=== PATIENT | female | born 1965 | race Caucasian/White ===

== ENCOUNTER 2020-06-09 08:20 | Outpatient (REF) | payer BC, SELFPAY ==
[2020-06-09 11:37] LABS: Estimated Average Glucose 148 mg/dL; Hemoglobin A1c % 6.8 %
[2020-06-09 12:06] LABS: Alanine Aminotransferase 67 U/L (0-31); Albumin Level 4.8 g/dL (3.5-5.0); Alkaline Phosphatase 49 U/L (39-117); Anion Gap 11 (12-20); Aspartate Amino Transferase 41 U/L (5-31); Bilirubin Total 0.6 mg/dL (0.0-1.0); Blood Urea Nitrogen 10 mg/dL (9-16); Calcium 8.5 mg/dL (8.4-10.2); Carbon Dioxide 29 mmol/L (22-29); Chloride 102 mmol/L (96-108); Cholesterol 129 mg/dL; Estimated Glomerular Filt Rate > 60; Glucose Fasting 157 mg/dL (60-99); HDL Cholesterol 71 mg/dL; LDL Cholesterol Calculated 49 mg/dl; Potassium 4.7 mmol/l (3.3-5.1); Sodium 137 mmol/L (135-145); Total Protein 6.9 g/dL (6.5-8.0); Triglycerides 48 mg/dL
[2020-06-09 12:32] LABS: Creatinine Urine 41.21 mg/dL; Microalbumin Urine < 5.0 mg/L
== END 2020-06-09 08:21 | disposition home or self-care (01) ==
LOC: HO.MANLR 08:20
PROVIDERS: PCP Internal Medicine; Visit Provider Internal Medicine
DX: E11.9 Type 2 diabetes mellitus without complications (principal)
CPT/HCPCS: 80053; 80061; 82043; 83036

== ENCOUNTER 2020-09-07 08:38 | Outpatient (REF) | payer BC, SELFPAY ==
[2020-09-07 11:30] LABS: Estimated Average Glucose 143 mg/dL; Hemoglobin A1c % 6.6 %
== END 2020-09-07 08:39 | disposition home or self-care (01) ==
LOC: HO.MANLR 08:38
PROVIDERS: PCP Internal Medicine; Visit Provider Internal Medicine
DX: E11.9 Type 2 diabetes mellitus without complications (principal)
CPT/HCPCS: 36415; 83036

== ENCOUNTER 2020-12-29 11:33 | Outpatient (REF) | payer BC, SELFPAY ==
[2020-12-29 12:52] LABS: Hemoglobin 12.6 g/dl (12.0-16.0); Mean Corpuscular HGB Conc 34.1 g/dl (31.0-35.0); Mean Corpuscular Hemoglobin 30.2 pg (27.0-33.0); Mean Corpuscular Volume 88.7 fL (80-98); Mean Platelet Volume 10.1 fL (9.4-12.3); Platelet Count 223 X10*3/uL (160-400); Red Blood Count 4.17 X10*6/uL (4.20-5.50); Red Cell Distribution Width 12.2 % (11.0-16.0); White Blood Count 4.7 X10*3/uL (4.8-10.8)
[2020-12-29 13:30] LABS: Alanine Aminotransferase 50 U/L (0-31); Albumin Level 4.7 g/dL (3.5-5.0); Alkaline Phosphatase 52 U/L (39-117); Anion Gap 13 (12-20); Aspartate Amino Transferase 31 U/L (5-31); Bilirubin Total 0.9 mg/dL (0.0-1.0); Blood Urea Nitrogen 9 mg/dL (9-16); Calcium 9.9 mg/dL (8.4-10.2); Carbon Dioxide 26 mmol/L (22-29); Chloride 106 mmol/L (96-108); Cholesterol 111 mg/dL; Creatinine Urine 41.42 mg/dL; Estimated Average Glucose 151 mg/dL; Estimated Glomerular Filt Rate > 60; Glucose Random 153 mg/dL (60-115); HDL Cholesterol 61 mg/dL; Hemoglobin A1c % 6.9 %; LDL Cholesterol Calculated 40 mg/dl; Microalbum/Creatinine Ratio Ur 16.9 ug/mg cr; Potassium 5.1 mmol/L (3.3-5.1); Sodium 140 mmol/L (135-145); Total Protein 6.9 g/dL (6.5-8.0); Triglycerides 54 mg/dL
== END 2020-12-29 11:34 | disposition home or self-care (01) ==
LOC: HO.MANLDS 11:33
PROVIDERS: PCP Internal Medicine; Visit Provider Internal Medicine
DX: E11.9 Type 2 diabetes mellitus without complications (principal); E78.00 Pure hypercholesterolemia, unspecified; F07.81 Postconcussional syndrome
CPT/HCPCS: 36415; 80053; 80061; 82043; 83036; 85027

== ENCOUNTER 2021-05-25 08:33 | Outpatient (REF) | payer BC, SELFPAY ==
[2021-05-25 11:11] LABS: Estimated Average Glucose 203 mg/dL; Hemoglobin A1c % 8.7 %
[2021-05-25 11:44] LABS: Alanine Aminotransferase 100 U/L (0-31); Albumin Level 4.4 g/dL (3.5-5.0); Alkaline Phosphatase 58 U/L (39-117); Anion Gap 12 (12-20); Aspartate Amino Transferase 112 U/L (5-31); Bilirubin Total 0.9 mg/dL (0.0-1.0); Blood Urea Nitrogen 8 mg/dL (9-16); Calcium 9.4 mg/dL (8.4-10.2); Carbon Dioxide 27 mmol/L (22-29); Chloride 99 mmol/L (96-108); Cholesterol 104 mg/dL; Estimated Glomerular Filt Rate > 60; Glucose Fasting 272 mg/dL (60-99); HDL Cholesterol 48 mg/dL; LDL Cholesterol Calculated 46 mg/dl; Potassium 4.4 mmol/L (3.3-5.1); Sodium 134 mmol/L (135-145); Total Protein 6.6 g/dL (6.5-8.0); Triglycerides 54 mg/dL
[2021-05-25 11:44] LABS: Creatinine Urine 75.25 mg/dL; Microalbum/Creatinine Ratio Ur 14.6 ug/mg cr
== END 2021-05-25 08:34 | disposition home or self-care (01) ==
LOC: HO.MANLDS 08:33
PROVIDERS: PCP Internal Medicine; Visit Provider Internal Medicine
DX: E11.9 Type 2 diabetes mellitus without complications (principal); E78.00 Pure hypercholesterolemia, unspecified
CPT/HCPCS: 36415; 80053; 80061; 82043; 83036

== ENCOUNTER 2021-08-26 08:30 | Outpatient (REF) | payer BC, SELFPAY ==
[2021-08-26 11:25] LABS: Alanine Aminotransferase 60 U/L (0-31); Albumin Level 4.6 g/dL (3.5-5.0); Alkaline Phosphatase 56 U/L (39-117); Anion Gap 11 (12-20); Aspartate Amino Transferase 31 U/L (5-31); Bilirubin Total 0.8 mg/dL (0.0-1.0); Blood Urea Nitrogen 7 mg/dL (9-16); Calcium 9.5 mg/dL (8.4-10.2); Carbon Dioxide 28 mmol/L (22-29); Chloride 102 mmol/L (96-108); Cholesterol 133 mg/dL; Estimated Glomerular Filt Rate > 60; Glucose Fasting 137 mg/dL (60-99); HDL Cholesterol 64 mg/dL; LDL Cholesterol Calculated 63 mg/dl; Potassium 4.7 mmol/L (3.3-5.1); Sodium 136 mmol/L (135-145); Total Protein 6.9 g/dL (6.5-8.0); Triglycerides 32 mg/dL
[2021-08-26 11:28] LABS: Estimated Average Glucose 143 mg/dL; Hemoglobin A1c % 6.6 %
[2021-08-26 11:28] LABS: Creatinine Urine 100.39 mg/dL; Microalbum/Creatinine Ratio Ur 5.9 ug/mg cr
== END 2021-08-26 08:31 | disposition home or self-care (01) ==
LOC: HO.MANLDS 08:30
PROVIDERS: PCP Internal Medicine; Visit Provider Internal Medicine
DX: E11.9 Type 2 diabetes mellitus without complications (principal)
CPT/HCPCS: 36415; 80053; 80061; 82043; 83036

== ENCOUNTER 2021-11-23 11:16 | Outpatient (REF) | payer BC, SELFPAY ==
[2021-11-23 12:58] LABS: Alanine Aminotransferase 55 U/L (0-31); Albumin Level 4.4 g/dL (3.5-5.0); Alkaline Phosphatase 54 U/L (39-117); Anion Gap 12 (12-20); Aspartate Amino Transferase 44 U/L (5-31); Bilirubin Total 0.4 mg/dL (0.0-1.0); Blood Urea Nitrogen 10 mg/dL (9-16); Calcium 9.6 mg/dL (8.4-10.2); Carbon Dioxide 27 mmol/L (22-29); Chloride 102 mmol/L (96-108); Cholesterol 148 mg/dL; Estimated Glomerular Filt Rate > 60; Glucose Random 221 mg/dL (60-115); HDL Cholesterol 67 mg/dL; LDL Cholesterol Calculated 61 mg/dl; Potassium 4.5 mmol/L (3.3-5.1); Sodium 136 mmol/L (135-145); Total Protein 6.7 g/dL (6.5-8.0); Triglycerides 100 mg/dL
[2021-11-23 13:00] LABS: Estimated Average Glucose 128 mg/dL; Hemoglobin A1c % 6.1 %
[2021-11-23 14:55] LABS: Creatinine Urine 112.57 mg/dL; Microalbum/Creatinine Ratio Ur 14.2 ug/mg cr
== END 2021-11-23 11:17 | disposition home or self-care (01) ==
LOC: HO.MANLDS 11:16
PROVIDERS: Visit Provider Internal Medicine
DX: E11.9 Type 2 diabetes mellitus without complications (principal)
CPT/HCPCS: 36415; 80053; 80061; 82043; 83036

== ENCOUNTER 2022-03-20 07:55 | Outpatient (REF) | payer BC, SELFPAY ==
[2022-03-20 11:21] LABS: Estimated Average Glucose 140 mg/dL; Hemoglobin A1c % 6.5 %
== END 2022-03-20 07:56 | disposition home or self-care (01) ==
LOC: HO.MANLDS 07:55
PROVIDERS: Visit Provider Internal Medicine
DX: E11.9 Type 2 diabetes mellitus without complications (principal)
CPT/HCPCS: 36415; 83036

== ENCOUNTER 2022-08-23 07:39 | Outpatient (REF) | payer BC, SELFPAY ==
[2022-08-23 12:05] LABS: Estimated Average Glucose 206 mg/dL; Hemoglobin A1c % 8.8 %
[2022-08-23 12:33] LABS: Alanine Aminotransferase 118 U/L (0-31); Albumin Level 4.5 g/dL (3.5-5.0); Alkaline Phosphatase 70 U/L (39-117); Anion Gap 14 (12-20); Aspartate Amino Transferase 91 U/L (5-31); Bilirubin Total 1.2 mg/dL (0.0-1.0); Blood Urea Nitrogen 11 mg/dL (9-16); Calcium 9.4 mg/dL (8.4-10.2); Carbon Dioxide 27 mmol/L (22-29); Chloride 103 mmol/L (96-108); Cholesterol 143 mg/dL; Estimated Glomerular Filt Rate > 60; Glucose Fasting 222 mg/dL (60-99); HDL Cholesterol 53 mg/dL; LDL Cholesterol Calculated 79 mg/dl; Potassium 4.8 mmol/L (3.3-5.1); Sodium 139 mmol/L (135-145); Total Protein 6.8 g/dL (6.5-8.0); Triglycerides 59 mg/dL
[2022-08-23 12:53] LABS: Creatinine Urine 179.58 mg/dL
[2022-08-23 15:05] LABS: Microalbum/Creatinine Ratio Ur 12.8 ug/mg cr
== END 2022-08-23 07:40 | disposition home or self-care (01) ==
LOC: HO.MANLDS 07:39
PROVIDERS: Visit Provider Internal Medicine
DX: E11.9 Type 2 diabetes mellitus without complications (principal)
CPT/HCPCS: 36415; 80053; 80061; 82043; 83036

== ENCOUNTER 2022-10-31 08:16 | Outpatient (REF) | payer BC, SELFPAY ==
[2022-10-31 12:16] LABS: Estimated Average Glucose 171 mg/dL; Hemoglobin A1c % 7.6 %
[2022-10-31 12:53] LABS: Creatinine Urine 110.83 mg/dL
[2022-10-31 13:08] LABS: Alanine Aminotransferase 83 U/L (0-31); Albumin Level 4.4 g/dL (3.5-5.0); Alkaline Phosphatase 64 U/L (39-117); Anion Gap 13 (12-20); Aspartate Amino Transferase 54 U/L (5-31); Blood Urea Nitrogen 8 mg/dL (9-16); Calcium 9.1 mg/dL (8.4-10.2); Carbon Dioxide 27 mmol/L (22-29); Chloride 103 mmol/L (96-108); Cholesterol 133 mg/dL; Estimated Glomerular Filt Rate > 60; Glucose Random 148 mg/dL (60-115); HDL Cholesterol 61 mg/dL; LDL Cholesterol Calculated 64 mg/dl; Sodium 138 mmol/L (135-145); Total Protein 6.5 g/dL (6.5-8.0); Triglycerides 40 mg/dL
== END 2022-10-31 08:17 | disposition home or self-care (01) ==
LOC: HO.MANLDS 08:16
PROVIDERS: Visit Provider Internal Medicine
DX: E11.9 Type 2 diabetes mellitus without complications (principal)
CPT/HCPCS: 36415; 80053; 80061; 82043; 83036

== ENCOUNTER 2023-01-19 08:09 | Outpatient (REF) | payer BC, SELFPAY ==
[2023-01-19 14:05] LABS: Estimated Average Glucose 131 mg/dL; Hemoglobin A1c % 6.2 %
[2023-01-19 14:06] LABS: Alanine Aminotransferase 76 U/L (0-31); Albumin Level 4.6 g/dL (3.5-5.0); Alkaline Phosphatase 60 U/L (39-117); Anion Gap 19 (12-20); Aspartate Amino Transferase 42 U/L (5-31); Bilirubin Total 0.5 mg/dL (0.0-1.0); Blood Urea Nitrogen 10 mg/dL (9-16); Calcium 9.5 mg/dL (8.4-10.2); Carbon Dioxide 21 mmol/L (22-29); Chloride 103 mmol/L (96-108); Cholesterol 145 mg/dL; Estimated Glomerular Filt Rate > 60; Glucose Random 145 mg/dL (60-115); HDL Cholesterol 59 mg/dL; LDL Cholesterol Calculated 74 mg/dl; Potassium 4.5 mmol/L (3.3-5.1); Sodium 138 mmol/L (135-145); Total Protein 7.2 g/dL (6.5-8.0); Triglycerides 62 mg/dL
== END 2023-01-19 08:10 | disposition home or self-care (01) ==
LOC: HO.MANLDS 08:09
PROVIDERS: Visit Provider Internal Medicine
DX: E11.9 Type 2 diabetes mellitus without complications (principal)
CPT/HCPCS: 36415; 80053; 80061; 83036

== ENCOUNTER 2023-05-03 07:49 | Outpatient (REF) | payer BC, SELFPAY ==
[2023-05-03 11:32] LABS: Estimated Average Glucose 143 mg/dL; Hemoglobin A1c % 6.6 % (<6.0)
[2023-05-03 11:43] LABS: Alanine Aminotransferase 75 U/L (0-31); Albumin Level 4.5 g/dL (3.5-5.0); Alkaline Phosphatase 59 U/L (39-117); Anion Gap 11 (12-20); Aspartate Amino Transferase 48 U/L (5-31); Bilirubin Total 0.7 mg/dL (0.0-1.0); Blood Urea Nitrogen 7 mg/dL (9-16); Calcium 9.5 mg/dL (8.4-10.2); Carbon Dioxide 29 mmol/L (22-29); Chloride 106 mmol/L (96-108); Cholesterol 141 mg/dL (<200); Estimated Glomerular Filt Rate > 60; Glucose Random 136 mg/dL (60-115); HDL Cholesterol 67 mg/dL (>40); LDL Cholesterol Calculated 69 mg/dL (<100); Potassium 4.6 mmol/L (3.3-5.1); Sodium 141 mmol/L (135-145); Total Protein 6.9 g/dL (6.5-8.0); Triglycerides 28 mg/dL (<150)
== END 2023-05-03 07:50 | disposition home or self-care (01) ==
LOC: HO.WFDLDS 07:49
PROVIDERS: Visit Provider Internal Medicine
DX: E11.9 Type 2 diabetes mellitus without complications (principal)
CPT/HCPCS: 36415; 80053; 80061; 83036

== ENCOUNTER 2023-08-21 07:40 | Outpatient (REF) | payer BC, SELFPAY ==
[2023-08-21 14:00] LABS: Alanine Aminotransferase 82 U/L (0-31); Albumin Level 4.6 g/dL (3.5-5.0); Alkaline Phosphatase 63 U/L (39-117); Anion Gap 12 (12-20); Aspartate Amino Transferase 61 U/L (5-31); Bilirubin Total 0.9 mg/dL (0.0-1.0); Blood Urea Nitrogen 9 mg/dL (9-16); Calcium 9.8 mg/dL (8.4-10.2); Carbon Dioxide 30 mmol/L (22-29); Chloride 102 mmol/L (96-108); Cholesterol 148 mg/dL (<200); Estimated Glomerular Filt Rate > 60; Glucose Random 167 mg/dL (60-115); HDL Cholesterol 73 mg/dL (>40); LDL Cholesterol Calculated 65 mg/dL (<100); Potassium 4.6 mmol/L (3.3-5.1); Sodium 139 mmol/L (135-145); Total Protein 6.9 g/dL (6.5-8.0); Triglycerides 51 mg/dL (<150)
[2023-08-21 16:24] LABS: Estimated Average Glucose 143 mg/dL; Hemoglobin A1c % 6.6 % (<6.0)
== END 2023-08-21 07:41 | disposition home or self-care (01) ==
LOC: HO.MANLDS 07:40
PROVIDERS: Visit Provider Internal Medicine
DX: E11.9 Type 2 diabetes mellitus without complications (principal)
CPT/HCPCS: 36415; 80053; 80061; 83036

== ENCOUNTER 2023-12-05 08:01 | Outpatient (REF) | payer BC, SELFPAY ==
[2023-12-05 13:50] LABS: Estimated Average Glucose 157 mg/dL; Hemoglobin A1c % 7.1 % (<6.0)
== END 2023-12-05 08:02 | disposition home or self-care (01) ==
LOC: HO.MANLDS 08:01
PROVIDERS: Visit Provider Internal Medicine
DX: E11.9 Type 2 diabetes mellitus without complications (principal)
CPT/HCPCS: 36415; 83036

== ENCOUNTER 2024-03-21 09:20 | Outpatient (REF) | payer BC, SELFPAY ==
[2024-03-21 11:40] LABS: Estimated Average Glucose 146 mg/dL; Hemoglobin A1c % 6.7 % (<6.0); Total Hemoglobin (HGBA1C) 3495.0687 umol/L
[2024-03-21 12:17] LABS: Alanine Aminotransferase 113 U/L (0-31); Albumin Level 4.5 g/dL (3.5-5.0); Alkaline Phosphatase 60 U/L (39-117); Anion Gap 12 (12-20); Aspartate Amino Transferase 78 U/L (5-31); Bilirubin Total 0.7 mg/dL (0.0-1.0); Blood Urea Nitrogen 7 mg/dL (9-16); Calcium 9.7 mg/dL (8.4-10.2); Carbon Dioxide 27 mmol/L (22-29); Chloride 104 mmol/L (96-108); Cholesterol 156 mg/dL (<200); Estimated Glomerular Filt Rate > 60; Glucose Random 159 mg/dL (60-115); HDL Cholesterol 82 mg/dL (>40); LDL Cholesterol Calculated 68 mg/dL (<100); Potassium 4.1 mmol/L (3.3-5.1); Sodium 139 mmol/L (135-145); Total Protein 6.9 g/dL (6.5-8.0); Triglycerides 34 mg/dL (<150)
== END 2024-03-21 09:21 | disposition home or self-care (01) ==
LOC: HO.WFDLDS 09:20
PROVIDERS: Visit Provider Internal Medicine
DX: E11.9 Type 2 diabetes mellitus without complications (principal)
CPT/HCPCS: 36415; 80053; 80061; 83036

== ENCOUNTER 2024-07-18 08:31 | Outpatient (REF) | payer BC, SELFPAY ==
--- OUTSIDE RECORDS SUMMARY | 2024-07-18 08:51 | XMS_ITS | Data Portability ---
Author Organization [facility] (formerly [facility])[3][facility], Home Service Address [address] [place] [address] Assessment Encounter Date Assessment Date Assessment LastModified by Organization Details LastModified Time 01/24/2023 01/24/2023 [id number] [place] [id number] (RADIO REPAIR TEACHER) [facility] MODERATE MUST MEET 2 OUT OF 3 ELEMENTS: PROBLEMS, DATA OR RISK ELEMENT 1: PROBLEMS ADDRESSED 1 OR MORE CHRONIC ILLNESS WITH EXACERBATION OR 2 OR MORE STABLE CHRONIC ILLNESSES OR 1 UNDIAGNOSED NEW PROBLEM OR 1 ACUTE ILLNESS W/SYMPTOMS OR 1 ACUTE COMPLICATED INJURY ELEMENT 2: DATA MUST MEET 1 OF 3 CATEGORIES CATEGORY 1: REVIEW OF PRIOR EXTERNAL NOTES, REVIEW OF RESULTS, ORDERING OF EACH TEST, ASSESSMENT REQUIRING INDEPENDENT HISTORIAN OR CATEGORY 2: INDEPENDENT INTERPRETATION OF TESTS BY ANOTHER PHYSICIAN OR SPECIALIST OR CATEGORY 3: DISCUSSION OF MGT OR TEST INTERPRETATION W/EXTERNAL PHYSICIAN OR SPECIALIST ELEMENT 3: RISK RISK OF COMPLICATIONS AND/OR MORBIDITY OR MORTALITY OF PATIENT MANAGEMENT PROVIDER MUST THOROUGHLY DOCUMENT EACH ELEMENT THAT IS COVERED Not available 01/24/2023 09:23:23 05/08/2023 05/08/2023 [id number] [place] [id number] (RADIO REPAIR TEACHER) [facility] MODERATE MUST MEET 2 OUT OF 3 ELEMENTS: PROBLEMS, DATA OR RISK ELEMENT 1: PROBLEMS ADDRESSED 1 OR MORE CHRONIC ILLNESS WITH EXACERBATION OR 2 OR MORE STABLE CHRONIC ILLNESSES OR 1 UNDIAGNOSED NEW PROBLEM OR 1 ACUTE ILLNESS W/SYMPTOMS OR 1 ACUTE COMPLICATED INJURY ELEMENT 2: DATA MUST MEET 1 OF 3 CATEGORIES CATEGORY 1: REVIEW OF PRIOR EXTERNAL NOTES, REVIEW OF RESULTS, ORDERING OF EACH TEST, ASSESSMENT REQUIRING INDEPENDENT HISTORIAN OR CATEGORY 2: INDEPENDENT INTERPRETATION OF TESTS BY ANOTHER PHYSICIAN OR SPECIALIST OR CATEGORY 3: DISCUSSION OF MGT OR TEST INTERPRETATION W/EXTERNAL PHYSICIAN OR SPECIALIST ELEMENT 3: RISK RISK OF COMPLICATIONS AND/OR MORBIDITY OR MORTALITY OF PATIENT MANAGEMENT PROVIDER MUST THOROUGHLY DOCUMENT EACH ELEMENT THAT IS COVERED Not available 05/08/2023 14:54:46 08/27/2023 08/27/2023 [id number] [place] [id number] (RADIO REPAIR TEACHER) [facility] MODERATE MUST MEET 2 OUT OF 3 ELEMENTS: PROBLEMS, DATA OR RISK ELEMENT 1: PROBLEMS ADDRESSED 1 OR MORE CHRONIC ILLNESS WITH EXACERBATION OR 2 OR MORE STABLE CHRONIC ILLNESSES OR 1 UNDIAGNOSED NEW PROBLEM OR 1 ACUTE ILLNESS W/SYMPTOMS OR 1 ACUTE COMPLICATED INJURY ELEMENT 2: DATA MUST MEET 1 OF 3 CATEGORIES CATEGORY 1: REVIEW OF PRIOR EXTERNAL NOTES, REVIEW OF RESULTS, ORDERING OF EACH TEST, ASSESSMENT REQUIRING INDEPENDENT HISTORIAN OR CATEGORY 2: INDEPENDENT INTERPRETATION OF TESTS BY ANOTHER PHYSICIAN OR SPECIALIST OR CATEGORY 3: DISCUSSION OF MGT OR TEST INTERPRETATION W/EXTERNAL PHYSICIAN OR SPECIALIST ELEMENT 3: RISK RISK OF COMPLICATIONS AND/OR MORBIDITY OR MORTALITY OF PATIENT MANAGEMENT PROVIDER MUST THOROUGHLY DOCUMENT EACH ELEMENT THAT IS COVERED Not available 08/27/2023 11:19:06 12/17/2023 12/17/2023 [id number] [place] [id number] (RADIO REPAIR TEACHER) [facility] MODERATE MUST MEET 2 OUT OF 3 ELEMENTS: PROBLEMS, DATA OR RISK ELEMENT 1: PROBLEMS ADDRESSED 1 OR MORE CHRONIC ILLNESS WITH EXACERBATION OR 2 OR MORE STABLE CHRONIC ILLNESSES OR 1 UNDIAGNOSED NEW PROBLEM OR 1 ACUTE ILLNESS W/SYMPTOMS OR 1 ACUTE COMPLICATED INJURY ELEMENT 2: DATA MUST MEET 1 OF 3 CATEGORIES CATEGORY 1: REVIEW OF PRIOR EXTERNAL NOTES, REVIEW OF RESULTS, ORDERING OF EACH TEST, ASSESSMENT REQUIRING INDEPENDENT HISTORIAN OR CATEGORY 2: INDEPENDENT INTERPRETATION OF TESTS BY ANOTHER PHYSICIAN OR SPECIALIST OR CATEGORY 3: DISCUSSION OF MGT OR TEST INTERPRETATION W/EXTERNAL PHYSICIAN OR SPECIALIST ELEMENT 3: RISK RISK OF COMPLICATIONS AND/OR MORBIDITY OR MORTALITY OF PATIENT MANAGEMENT PROVIDER MUST THOROUGHLY DOCUMENT EACH ELEMENT THAT IS COVERED Not available 12/17/2023 10:17:58 Plan of Treatment Reminders Order Date Submit Date Provider Last Modified By Organization Details Last Modified Time Details Appointments FOLLOW UP 15 2024 10:15A M DR HENDRICKSON Not available Not available Not available Lab None recorded. Referral None recorded. Procedures None recorded. Surgeries None recorded. Imaging US, echocardi ogram, transthor acic, complete, w/ color flow 2023 024 hrubner Not available 03/26/2024 09:22:07 Medication Orders azithromy karol 250 mg tablet 2022 023 [id number], [address], [place], [phone], 08/27/2023 10:46:58 Trulicity 1.5 mg/0.5 mL subcutane ous pen injector 2023 024 VESTA [id number], [address], [place], [phone], 12/17/2023 10:21:48 Patient TargetsNo targets recorded. Patient Instructions Encounter Date Encounter Id Patient Instructions Last Modified By Organization Details Last Modified Time 03/25/2024 [id number] deciding about using medicines to quit smoking Not available 03/25/2024 13:54:47 Quitting Tobacco : Care Instructions Not available 03/25/2024 13:54:47 aortic valve regurgitation: care instructions Not available 03/25/2024 13:54:46 heart valve disease: care instructions Not available 03/25/2024 13:54:47 mitral valve regurgitation: care instructions Not available 03/25/2024 13:54:46 Reason for Referral None Reported. Results Created Date Observation Date Name Description Value Unit Range Abnormal Flag Note LastModifiedBy Organization Detail LastModifiedTime 03/22/2003/12/2023 MAMMO , scree stiven, digit al, bilat eral No observ ation record ed. [facility] [address] [place] [address], [id number], 03/22/2023 22:33:45 04/10/20 24 04/10/2024 US, echoc ardio gram, trans thora cic, compl ete, w/ color flow No observ ation record ed. [address], [address], 04/10/2024 20:52:21 Result Notes None recorded. Problems Name Problem SNOMED Code Status Onset Date Resolution Date Notes Provider Name and Address Organization Details Recorded Time Hypercho lesterol emia 66264114 Active 2019 Not Available [facility] 1 10:52:05 COVID-19 000064938 Active 2020March 2021 [facility] 10:19:08 Concussi on injury of brain 526353055 Active 2021 Cheo Hendrickson, DO [address] [place] [address], [phone], [facility] 2 11:44:23 Tobacco dependen ce syndrome 09892866 Active 2021 Cheo Hendrickson, DO [address] [place] [address], [phone], [facility] 2 11:44:23 Aortic valve regurgit ation 23982629 Active 2022 Cheo Hendrickson, DO [address] [place] [address], [phone], [facility] 3 14:45:15 Mitral valve regurgit ation 36990571 Active 2022 Cheo Hendrickson, DO [address] [place] [address], [phone], [facility] 3 14:45:28 Liver enzymes level above referenc e range 773857745 Active 2022 Cheo Hendrickson, DO [address] [place] [address], [phone], [facility] 3 14:46:58 Viral upper respirat ory tract infectio n 525164148 Active 2022 Cheo Hendrickson, DO [address] [place] [address], [phone], [facility] 3 12:33:05 Atypical pneumoni a 036744388 Active 2022 Cheo Hendrickson, DO [address] [place] [address], [address], [facility] 3 14:54:16 Obstruct lazarus sleep apnea syndrome 59786908 Active 2017 Not Available [facility] 1 10:52:05 Prediabe virgen 288758096 Completed 201711/12/2017 Cheo Hendrickson, DO [address] [facility], [place], [address], [facility] 8 11:14:51 Hyperten sive disorder 62772642 Active 2017 Not Available [facility] 1 10:52:05 Migraine 58357471 Active 2017 Not Available [facility] 1 10:52:05 History of reductio n of breast 698761601 Active 2017 b/l Not Available [facility] 1 10:52:05 History of obesity 175579538 Active 2017 Not Available [facility] 1 10:52:05 Diabetes mellitus 87737656 Active 2017 Not Available [facility] 1 10:52:05 Problem Notes None recorded. Procedures Surgical History Date Name Laterality Status Provider Name and Address Organization Details Recorded Time 7 Colonoscopy completed Chuyita Dumont [facility] 06/10/2018 16:31:33 Imaging Results Imaging Date Name Status LastModified by Organiz ation Details LastModified Time 03/12/2023 MAMMO, screening, digital, bilateral completed [address] [facility] [address] [place] [address], [id number], 03/22/2023 22:33:45 04/10/2024 US, echocardiogram , transthoracic, complete, w/ color flow completed [address], [address], 04/10/2024 20:52:21 Procedure Notes None recorded. Medical Equipment None Reported. Allergies No known drug allergies Medications Name Sig Start Date Stop Date Status Note LastModified by Organization Details LastModified Time amoxicillin 500 mg capsule 08/28 completed Not Available Not Available Not Available metformin 500 mg tablet Take 1 tablet every day by oral route in the morning for 30 days. active Not Available Not Available No t Available atorvastati n 10 mg tablet Take 1 tablet every day by oral route. 12/14 completed Not Available Not Available Not Available azithromyci n 250 mg tablet TAKE 2 TABLETS (500 MG) BY ORAL ROUTE ONCE DAILY FOR 1 DAY THEN 1 TABLET (250 MG) BY ORAL ROUTE ONCE DAILY FOR 4 DAYS 08/26 completed Not Available Not Available Not Available hydrocodone 5 mg-acetamin ophen 325 mg tablet 08/28 completed Not Available Not Available Not Available aspirin 81 mg tablet,khadra yed release active Not Available Not Available Not Available mupirocin 2 % topical ointment APPLY SMALL AMOUNT TOPICALLY TO THE AFFECTED AREA THREE TIMES DAILY 05/30 completed Not Available Not Available Not Available metformin ER 500 mg tablet,exte nded release 24 hr TAKE 2 TABLETS BY MOUTH EVERY DAY 12/16 completed Not Available Not Available Not Available Pneumovax-2 3 25 mcg/0.5 mL injection syringe ADM 0.5ML IM UTD 06/16 completed Not Available Not Available Not Available rosuvastati n 5 mg tablet TAKE 1 TABLET BY MOUTH EVERY DAY 03/22 completed Not Available Not Available Not Available chlorhexidi ne gluconate 0.12 % mouthwash 08/28 completed Not Available Not Available Not Available Januvia 100 mg tablet TAKE 1 TABLET BY MOUTH DAILY active Not Available Not Available No t Available OneTouch Verio test strips Take 1 strip twice a day by miscell. route for 90 days. active Not Available Not Available No t Available OneTouch Delica Lancets 30 gauge Take 1 each twice a day by miscell. route for 50 days. active Not Available Not Available No t Available Trulicity 1.5 mg/0.5 mL subcutaneou s pen injector Inject 0.5 mL every week by subcutane ous route for 30 days. active Not Available Not Available No t Available Trulicity 0.75 mg/0.5 mL subcutaneou s pen injector ADMINISTE R 0.75 MG UNDER THE SKIN EVERY WEEK 12/16 completed Not Available Not Available Not Available Shingrix (PF) 50 mcg/0.5 mL intramuscul ar suspension, kit ADM 0.5ML IM UTD 06/16 completed Not Available Not Available Not Available Fluarix Quad (PF) 60 mcg (15 mcg x 4)/0.5 mL IM syringe 08/31 completed Not Available Not Available Not Available Fluzone Quad (PF) 60 mcg (15 mcg x 4)/0.5 mL IM syringe ADM 0.5ML IM UTD 06/16 completed Not Available Not Available Not Available Vitals Date Recorded Body height Body mass index (BMI) Body weight Heart rate Oxygen saturation Oxygen saturation in Arterial blood by Pulse oximetry Systolic blood pressure Diastolic blood pressure Provider Name and Address Organization Details Last Updated DateTime 3 171.45 cm 27.3 kg/m2 61589.8 5 g 100 /min 99 % 99 % 138 mm[Hg] 80 mm[Hg] Claritza Robles [facility] 3 09:09:57 Date Recorded Body height Body mass index (BMI) Body weight Heart rate Oxygen saturation Oxygen saturation in Arterial blood by Pulse oximetry Systolic blood pressure Diastolic blood pressure Provider Name and Address Organization Details Last Updated DateTime 3 171.45 cm 26.4 kg/m2 20448.5 8 g 77 /min 97 % 97 % 145 mm[Hg] 82 mm[Hg] Yolanda Ware [facility] 3 13:58:56 Date Recorded Body height Body mass index (BMI) Body weight Heart rate Oxygen saturation Oxygen saturation in Arterial blood by Pulse oximetry Systolic blood pressure Diastolic blood pressure Provider Name and Address Organization Details Last Updated DateTime 4 171.45 cm 27.2 kg/m2 53274.6 2 g 61 /min 99 % 99 % 162 mm[Hg] 98 mm[Hg] Cheo Hendrickson, DO [address] [place], [address], [facility] 4 10:46:13 Date Recorded Body height Body mass index (BMI) Body weight Heart rate Oxygen saturation Oxygen saturation in Arterial blood by Pulse oximetry Systolic blood pressure Diastolic blood pressure Provider Name and Address Organization Details Last Updated DateTime 4 171.45 cm 26.1 kg/m2 38827.8 3 g 66 /min 99 % 99 % 166 mm[Hg] 90 mm[Hg] Leandra Hill [facility] 4 10:02:11 Date Recorded Body height Body mass index (BMI) Body weight Heart rate Oxygen saturation Oxygen saturation in Arterial blood by Pulse oximetry Systolic blood pressure Diastolic blood pressure Provider Name and Address Organization Details Last Updated DateTime 4 171.45 cm 26.1 kg/m2 49219.1 1 g 77 /min 100 % 100 % 138 mm[Hg] 80 mm[Hg] Claritza Robles [facility] 4 13:41:12 Social History Question Answer Notes LastModified by Organizat ion Details LastModified Time Tobacco Smoking Status Former Smoker Claritza gonzales [facility] 01/24/2023 09:08:35 What Was The Date Of Your Most Recent Tobacco Screening? 03/25/2024 [email or web address] Information not available 03/25/2024 How Much Tobacco Do You Smoke? No Information not available 01/24/2023 Do You Or Have You Ever Used Any Other Forms Of Tobacco Or Nicotine? No [email or web address] Information not available 01/24/2023 Sex: Unknown Functional Status None recorded. Mental Status None recorded. Family History Nothing Reported. Medical History Condition Response Coronary Artery Disease N Other N Gout N Blood Diseases N Kidney Stones N Breast Cancer N Blood Transfusion N Lung Disease N Depression N COPD N Defects or Inherited Disease N Anxiety Disorder N Muscle, Joint, or Bone Problems N Obesity N Vision or Eye Problems N Arthritis N Infertility N Polyps N Mental Disorder N Cancer N Stroke N Varicosities N Endometriosis N Bladder or Kidney Problems N High Cholesterol N Liver Disease N Fibromyalgia N Headaches N Kidney Disease N Allergies/Hayfever N Heart Problems N Hospitalizations N Thyroid Problems N GI Problems N Eating Disorder N Skin Problems N Anemia N MRSA exposure N Constipation N Mental Illness N Diabetes N Ovarian Cancer N Seizures/Epilepsy N Tuberculosis N Congestive Heart Failure (CHF) N Eczema N Abuse/Domestic Violence N Diverticulitis N Asthma N Reflux/GERD N Hepatitis N Heart Disease N Pulmonary Embolism N Hypertension N Chicken Pox N Autism Spectrum Disorder (ASD) N Osteoporosis N Gynecological HistoryNo gynecological history recorded. Obstetrics History GPAL:G 0 P 0 0 0 0 Immunizations Vaccine Type Date Status Note Provider Nam e and Address Organization Details Recorded Time Influenza, split virus, quadrivalent, preservative 1 completed Yolanda Gencarelle [facility] 01/24/2023 08:53:02 COVID-19, mRNA, LNP-S, PF, 100 mcg/0.5mL dose or 50 mcg/0.25mL dose 1 completed Yolanda Gencarelle null, [facility] 01/24/2023 08:53:02 influenza, unspecified formulation 2 completed Yolanda Gencarelle null, [facility] 01/24/2023 08:53:02 influenza, unspecified formulation 3 completed Blayne Jacksonda null, [facility] 08/24/2023 16:11:48 Influenza, split virus, quadrivalent, preservative 9 completed Yolanda Gencarelle null, [facility] 01/24/2023 08:53:02 Influenza, split virus, quadrivalent, preservative 0 completed Yolanda Gencarelle null, [facility] 01/24/2023 08:53:02 pneumococcal polysaccharide PPV23 0 completed Yolanda Gencarelle null, [facility] 01/24/2023 08:53:02 zoster recombinant 0 completed Yolanda Gencarelle null, [facility] 01/24/2023 08:53:02 zoster recombinant 1 completed Yolanda Gencarelle null, [facility] 01/24/2023 08:53:02 Tdap 1 completed Betty Figueroa null, [facility] 07/13/2020 10:57:02 COVID-19, mRNA, LNP-S, PF, 100 mcg/0.5mL dose or 50 mcg/0.25mL dose 1 completed Yolanda Gencarelle null, [facility] 01/24/2023 08:53:02 Influenza, split virus, quadrivalent, preservative 8 completed Yolanda Gencarelle null, [facility] 01/24/2023 08:53:02 COVID-19, mRNA, LNP-S, PF, 100 mcg/0.5mL dose or 50 mcg/0.25mL dose 1 completed Yolanda gonzales [facility] 01/24/2023 08:53:02 Past Encounters Encounter ID Performer Location Encounter Start Date Encounter Closed Date Diagnosis/Indication Diagnosis SNOMED-CT Code Diagnosis ICD10 Code Diagnosis Note [id number] Cheo Hendrickson [facility] [address] [facility],[place] [address] 11/12/2017 10:38:30 11/12/2017 13:14:04 Diabetes mellitus 49121378 E11.9 doing great and has been exercising every day 6.8 on no meds has eye exam next week Hypertensive disorder 38 654776 I10 no meds bp excellent cont to exercise [id number] Cheo Hendrickson DO [facility] [address],[place] [address] 02/27/2018 10:28:27 02/27/2018 11:35:54 Diabetes mellitus 18885234 E11.9 doing great and has been exercising every day 6.0 on no meds awesome Hypertensive disorder 38 216892 I10 no meds bp excellent cont to exercise [id number] Cheo Hendrickson DO [facility] [address], [address] [facility] [address] 06/10/2018 11:21:20 06/10/2018 12:22:00 Diabetes mellitus 68219926 E11.9 doing great and has been exercising every day 6.0 on no meds awesome had sx from lipitor so will try rosuvastat as last ditch attempt Hypertensive disorder 38 670467 I10 no meds bp excellent cont to exercise Screening for malignant neoplasm of colon 540227472 Z12.11 Screening for malignant neoplasm of breast 415559504 Z12.31 [id number] Irene Hutchison NP, S [facility] [address] [facility] [address], [place] [address] 07/10/2018 15:01:34 07/10/2018 15:26:13 Cough 60386703 R05 Fever 225626466 R50.9 Diabetes mellitus 245023 09 E11.9 pt aware to complete A1C [id number] Cheo Hendrickson DO [facility] [address] [facility] [address],[place] [address] 09/01/2019 11:52:07 09/01/2019 12:16:48 Hypertensive disorder 24919798 I10 no meds bp excellent cont to exercise Diabetes mellitus 762321 E11.9 did not keep a good diet and drinking etoh relates has not been good will start metformin 500 daily for now had sx from lipitor so will try rosuvastat in as last ditch attempt needs to find out which meter is covered Hypercholesterolemia 136 81297 E78.00 [id number] Cheo Hendrickson [facility] [address] [facility] [address],[place] [address] 12/15/2019 10:19:14 12/15/2019 11:22:01 Hypertensive disorder 49440952 I10 no meds bp excellent cont to exercise Diabetes mellitus 308108 E11.9 did not keep a good diet and drinking etoh relates has not been good will start metformin 500 daily for now had sx from lipitor so will try rosuvastat in as last ditch attempt needs to find out which meter is covered Hypercholesterolemia 136 03564 E78.00 doing great with rosuvastat [id number] Cheo Hendrickson DO [facility] [address] [facility] [address],[place] [address] 03/15/2020 10:43:24 03/15/2020 11:59:16 Hypertensive disorder 80781252 I10 no meds bp excellent cont to exercise Diabetes mellitus 107381 E11.9 did not keep a good diet and drinking etoh relates has not been good will start januvia daily for now but the problem with this is the cost 120$$$$$ needs to start checking sugars needs to find out which meter is covered Hypercholesterolemia 136 21217 E78.00 doing great with rosuvastat Liver enzy mes level above reference range 644596716 R74.8 will rechk in may and will have her cut down on partying etc [id number] Cheo Hendrickson [facility] [address] [facility] [address] [address] [place] [address] 06/16/2020 09:49:40 06/16/2020 11:09:40 Hypertensive disorder 56578417 I10 no meds bp excellent cont to exercise Diabetes mellitus 635629 E11.9 nahiduvia is well and is working great well tolerated relates has been good with diet and glucose readings doing good with diet will rechk a1c 3 mo Obstructiv e sleep apnea syndrome 92967885 G47.33 stable right now [id number] Cheo Hendrickson DO [facility] [address] [facility],[place] [address] 09/13/2020 10:20:18 09/13/2020 11:03:58 Hypertensive disorder 50803918 I10 no meds bp excellent cont to exercise sw will need to rechk after her echo Diabetes mellitus 573685 E11.9 nahiduvia is well and is working great well tolerated relates has been good with diet and glucose readings doing good with diet will rechk a1c 3 mo Hypercholesterolemia 136 55778 E78.00 doing great with rosuvastat Atypical chest pain 1025 95718 R07.89 [id number] KHURRAM DIANA [facility] [address] [facility],[place] [address] 11/23/2020 13:57:35 11/23/2020 15:37:25 Concussion injury of brain 185758696 S06.0X0S with loss of consciousn ess discussed with patient echo report would like to discuss with dr. hendrickson Syncope 308385951 R55 with LOC and head injury Aortic cha ve regurgitation 37685391 I35.1 worsened since last echo and new aortic root dilation Mitral cha ve regurgitation 63700190 I34.0 stable compared [id number] Cheo Hendrickson DO [facility] [address] [facility],[place] [address] 12/01/2020 12:13:22 12/01/2020 12:42:18 Hypertensive disorder 42792298 I10 no meds bp excellent cont to exercise sw will need to rechk after her echo Diabetes mellitus 603269 09 E11.9 nahiduvia is well and is working great well tolerated relates has been good with diet and glucose readings doing good with diet will rechk a1c 3 mo Postconcus suraj syndrome 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 will have her take it easy over the next couple weeks [id number] Cheo Hendrickson [facility] [address] [facility],[place] [address] 12/31/2020 11:13:06 12/31/2020 12:14:00 Diabetes mellitus 74354669 E11.9 landon is well and is working great well tolerated a1c is 6.9relates has been good with diet and glucose readings doing good with diet will rechk a1c 3 mo Hypertensive disorder 38 327233 I10 no meds bp excellent cont to exercise sw will need to rechk after her echo Obstructiv e sleep apnea syndrome 31650580 G47.33 stable right now Benign par oxysmal positional vertigo 735190875 H81.13 will need zyrtec D for the serous otitis seen on exam both ears Acute folliculitis 64237 7007 L73.9 [id number] Cheo Hendrickson [facility] [address] [facility],[place] [address] 05/30/2021 10:08:21 05/30/2021 12:25:33 Hypertensive disorder 28683063 I10 no meds bp excellent cont to exercise sw will need to rechk after her echo Diabetes mellitus [id number] 09 E11.9 a1c is up to 8.7 she has now shown signs of worsening neuropathy with rastafarian of tingling in feet at nightalso microalb has sl increased although still normalwe will try the trulicity rx again and see if the insurance will cover nowi am very worried about her and conveyed thatwill rechk a1c 3 mo Liver enzy mes level above reference range 919340146 R74.8 we will hold the rosuvastat in and rechk in 1 month [id number] Cheo Hendrickson [facility] [address] [facility],[place] [address] 08/29/2021 10:43:14 08/29/2021 15:08:43 Diabetes mellitus 69697849 E11.9 a1c is down to 6.6 from 8.7 doing great with trulicitye ating ok needs to increase activitywe will decrease the metformin to one tablet per day Hypertensive disorder 38 639658 I10 no meds bp excellent cont to exercise sw will need to rechk after her echo [id number] Cheo Hendrickson, [facility] [address] [facility] [address],[place] [address] 11/30/2021 10:50:07 11/30/2021 15:41:58 Hypertensive disorder 11986736 I10 no meds bp excellent cont to exercise sw will need to rechk after her echo Diabetes mellitus 728837 09 E11.9 a1c is down to 6.6 from 8.7 doing great with trulicitye ating ok needs to increase activitywe will decrease the metformin to one tablet per day Concussion injury of brain 004560969 S06.0X0S quiet and negative signs etc Tobacco de pendence syndrome 43398645 F17.200 discussed and quit in past already [id number] Cheo Hendrickson [facility] [address] [facility],[address] [place] [address] [place] [facility] [place] [address] 03/22/2022 10:19:54 03/22/2022 11:35:03 Hypertensive disorder 25793635 I10 no meds bp excellent cont to exercise sw will need to rechk after her echo Diabetes mellitus 879210 09 E11.9 a1c is down to 6.5 and was 6.6 from 8.7 doing great with trulicitye ating ok needs to increase activitywe will decrease the metformin to one tablet per day Hypercholesterolemia 136 42861 E78.00 doing great with rosuvastat [id number] Cheo Hendrickson [facility] [address] [facility] [address],[place] [address] 08/28/2022 13:55:54 08/28/2022 15:07:32 Diabetes mellitus 98844512 a1c isup to 8.8 and prior was down to 6.5 and was 6.6 from 8.7will increase trulicity and go back to 2 metformin dailyeatin g poorly needs to increase activity Hypertensive disorder 38 412455 I10 no meds bp excellent cont to exercise sw will need to rechk after her echo Obstructiv e sleep apnea syndrome 61571383 G47.33 stable right now Concussion injury of brain 871180518 S06.0X0S quiet and negative signs etc Screening mammography 24 784202 Z12.31 Liver enzy mes level above reference range 997974221 R74.8 we will still hold the rosuvastat in due to elevated levels andamount of etoh 32239 Cheo Hendrickson, [facility] [address] [facility],[address] [place] it[address] Mayer [facility] [place] [address] 11/01/2022 08:23:04 11/01/2022 14:24:08 Diabetes mellitus 01740870 E11.9 a1c is now down to 7.6 and she is doing much better she is walking daily and eating better no partying and quit tobacco we will stick to this plan and rechk in jan Liver enzy mes level above reference range 199676178 R74.8 we will still hold the rosuvastat in due to elevated levels andamount of etoh but levels are getting better Tobacco de pendence syndrome 05573820 F17.200 discussed and quit and is actually doing well without the past several mo Viral uppe r respiratory tract infection [id number] J06.9 covid neg she will cont to treat conserv and will have her call if ay sudden change 'whereupon we would prob treat for pneumoniti s with medrol and zpak [id number] Cheo Hendrickson, [facility] [address] [facility],Liza Mayer [facility] [place] [address] 01/24/2023 08:52:01 01/24/2023 09:45:50 Diabetes mellitus 17687810 E11.9 a1c is now down to 6.2 was 7.6 and she is doing much better she is walking daily and eating better no partying and quit tobacco we will stick to this plan and rechk in aprhas been getting some random nausea episodes that are quick and disappear this is c/w trulicity Hypercholesterolemia 136 11295 E78.00 off all statins due to lft will discuss the injectable s with dr payton once we see Mitral cha ve regurgitation 05440906 I34.0 follows with cardiology now Hypertensive disorder 38 469926 I10 no meds bp excellent cont to exercise sw will need to rechk after her echo Liver enzy mes level above reference range 775688981 R74.8 we will still hold the rosuvastat in due to elevated levels andamount of etoh but levels are getting better [id number] Cheo Hendrickson DO [facility] Internal Medicine [address] [facility] [address],[place] [address] 05/08/2023 13:51:20 05/08/2023 15:11:51 Hypercholesterolemia 53478954 E78.00 off all statins due to lft will discuss the injectable s with dr payton once we see Diabetes mellitus 573177 09 E11.9 a1c is now up tp 6.6 was down to 6.2 was 7.6 and she is doing much better she is walking daily and eating better no partying and quit tobacco we will stick to this plan and rechk in novhas been getting some random nausea episodes that are quick and disappear this is c/w trulicity Hypertensive disorder 38 282116 I10 no meds bp excellent cont to exercise sw will need to rechk after her echo Atypical pneumonia 40167 6009 J18.9 [id number] Cheo Hendrickson [facility] [address] [facility] [address],[place] [address] 08/27/2023 10:41:08 08/27/2023 11:34:36 Hypercholesterolemia 23341042 E78.00 off all statins due to lft will discuss the injectable s with dr payton once we see Hypertensive disorder 38 636409 I10 bp is up relates was in a great hurry sw will need to rechk after her echo Liver enzy mes level above reference range 318470209 R74.8 we will still hold the rosuvastat in due to elevated levels andamount of etoh but levels are getting better Diabetes mellitus 739297 09 E11.9 a1c is still at 6.6 was down to 6.2 was 7.6 and she is doing much better she is walking daily and eating better no partying and quit tobacco we will stick to this plan and rechk in novhas been getting some random nausea episodes that are quick and disappear this is c/w trulicity [id number] Cheo Hendrickson DO [facility] Internal Medicine [address] [facility] [address],[place] [address] 12/17/2023 09:54:11 12/17/2023 11:28:46 Depression screening 223572017 Z13.31 SCREENING NEGATIVE Hypertensive disorder 38 832641 I10 bp is up relates was in a great hurry is doing bettter since losing wgt Diabetes mellitus 309919 09 E11.9 a1c is still at 7.1 was 7.9 and she is doing much better she is walking daily and eating better no partying and quit tobacco we will stick to this plan and re[facility]k in [facility] been getting some random nausea episodes that are quick and disappear this is c/w trulicity Hypercholesterolemia 136 28757 E78.00 off all statins due to lft will discuss the injectable s with dr payton once we see [id number] Cheo Hendrickson, [facility] Medicine [address] [facility] [address],[place] [address] 03/25/2024 13:33:13 03/25/2024 14:39:45 Diabetes mellitus 57815228 E11.9 aa1c is 6.7 Hypertensive disorder 38 291984 I10 bp is up relates was in a great hurry is doing bettter since losing wgt Mitral cha ve regurgitation 83285880 I34.0 follows with cardiology now Tobacco de pendence syndrome 04660339 F17.200 discussed and quit and is actually doing well without the past several mo Aortic cha ve regurgitation 71982719 I35.1 Health Concerns Section Related Observation LastModified by Organization Detai ls LastModified Time None Recorded Concern Status LastModified by Organization Details LastModified Time None Recorded Advance Directives Directive None Recorded Payers Encounter Date Sequence Insurance Name Policy Number Policy Garcia Covered Member ID Garcia Member ID Guarantor Name 01/24/2023 1 [place] [employer] [facility] [id number] Katrin Cutler [id number] Katrin Cutler 05/08/2023 1 [place] [employer] [facility] [id number] Katrin Dangeloek [id number] Katrin Dangeloek 08/27/2023 1 [place] [employer] [facility] [id number] Katrin Cutler [id number] Katrin Cutler 12/17/2023 1 [place] [employer] [facility] [id number] Katrin Cutler [id number] Katrin Cutler 03/25/2024 1 [place] [employer] [facility] [id number] Katrin Dangelovenessa [id number] Katrin Cutler Notes Date Note Type Note Provider Name and Address Organization Details Recorded Time 3 text/htm l here for rechk and has been doing well with her diet and is walkinghas cut back frequency of etoh use Cheo Hendrickson DO [address] [place], [address], [facility] 01/24/2023 09:29:54 3 text/htm l Care Management - DiabetesReported bypatient.Self Care:seeing eye doctor yearly for dilated eye exam; checking feet regularly; normal range of home blood sugars (in the low 100s); no side effects from medications Associated Symptoms:symptoms are usually well controlled; no fatigue; no dizziness; no excessive sweating; no headaches; no confusion; no increased thirst; no increased appetite; no increased urination; no blurred vision; no numbness of feet; no calluses on feetCare Management - HypertensionReported bypatient.Self Care:not under emotional stress Severity:symptoms are improving; does not interfere with daily activities Associated Symptoms:no dizziness; no lightheadedness; no chest pain; no shortness of breath; no palpitations; no edema; no calf muscle cramps; no blurred vision; no confusion; no headaches; no fatigue her for rechkrelates has had a persistant cough and irritation with maybe some nasal congestionreviewed lab in detail Cheo Hendrickson DO [address] [place], [address], [facility] 05/08/2023 14:57:24 4 text/htm l here for rechk and is doing ok and relatesfeeling good overallwalking morebp is up but has been running around to get here 'has not gotten her lab relates that she is leary of doing cholest shot from dr payton a1c is 6.6 LDL 90 HDL 63 Cheo Hendrickson DO [address] [place], [address], [facility] 08/27/2023 11:19:59 4 text/htm l Care Management - DiabetesReported bypatient.Self Care:seeing eye doctor yearly for dilated eye exam; checking feet regularly; normal range of home blood sugars (in the low 100s); no side effects from medications Associated Symptoms:symptoms are usually well controlled; no fatigue; no dizziness; no excessive sweating; no headaches; no confusion; no increased thirst; no increased appetite; no increased urination; no blurred vision; no numbness of feet; no calluses on feetCare Management - HypertensionReported bypatient.Self Care:not under emotional stress Severity:symptoms are improving; does not interfere with daily activities Associated Symptoms:no dizziness; no lightheadedness; no chest pain; no shortness of breath; no palpitations; no edema; no calf muscle cramps; no blurred vision; no confusion; no headaches; no fatigue here for rechk and is doing ok overrall and relates that she has lost more wgtis stressed at home with partner departing but remains an active with kids and workhas lost a little weightstill occ parties but has cut back a great deal Cheo Hendrickson, DO [address] [place], [address], [facility] 12/18/2023 00:02:28 4 text/htm l Care Management - DiabetesReported bypatient.Self Care:seeing eye doctor yearly for dilated eye exam; checking feet regularly; normal range of home blood sugars (in the low 100s); no side effects from medications Associated Symptoms:symptoms are usually well controlled; no fatigue; no dizziness; no excessive sweating; no headaches; no confusion; no increased thirst; no increased appetite; no increased urination; no blurred vision; no numbness of feet; no calluses on feetCare Management - HypertensionReported bypatient.Self Care:not under emotional stress Severity:symptoms are improving; does not interfere with daily activities Associated Symptoms:no dizziness; no lightheadedness; no chest pain; no shortness of breath; no palpitations; no edema; no calf muscle cramps; no blurred vision; no confusion; no headaches; no fatigue here for rechk and is doing okno cp no sobstill has etohno palpitationshas lost a little wgtdue to see tata in may Cheo Hendrickson, DO [address] [facility], [place], [address], [facility] 03/25/2024 13:55:18 OBGyn Episode No OBEpisode recorded.
[2024-07-18 13:08] LABS: Estimated Average Glucose 146 mg/dL; Hemoglobin A1C 172.8996 umol/L; Hemoglobin A1c % 6.7 % (<6.0); Total Hemoglobin (HGBA1C) 3497.8686 umol/L
[2024-07-18 13:47] LABS: Alanine Aminotransferase 100 U/L (0-31); Albumin Level 4.2 g/dL (3.5-5.0); Anion Gap 9 (12-20); Aspartate Amino Transferase 66 U/L (5-31); Bilirubin Total 0.6 mg/dL (0.0-1.0); Blood Urea Nitrogen 8 mg/dL (9-16); Calcium 9.2 mg/dL (8.4-10.2); Carbon Dioxide 27 mmol/L (22-29); Chloride 106 mmol/L (96-108); Cholesterol 143 mg/dL (<200); Estimated Glomerular Filt Rate > 60; Glucose Fasting 159 mg/dL (60-99); HDL Cholesterol 73 mg/dL (>40); LDL Cholesterol Calculated 63 mg/dL (<100); Potassium 4.2 mmol/L (3.3-5.1); Sodium 138 mmol/L (135-145); Total Protein 6.7 g/dL (6.5-8.0); Triglycerides 35 mg/dL (<150)
[2024-07-18 14:18] LABS: Alkaline Phosphatase 63 U/L (39-117)
== END 2024-07-18 08:32 | disposition home or self-care (01) ==
LOC: HO.WFDLDS 08:31
PROVIDERS: Visit Provider Internal Medicine
DX: E11.9 Type 2 diabetes mellitus without complications (principal)
CPT/HCPCS: 36415; 80053; 80061; 83036

== ENCOUNTER 2024-11-05 11:20 | Outpatient (REF) | payer BC, SELFPAY ==
--- OUTSIDE RECORDS SUMMARY | 2024-11-05 12:20 | XMS_ITS | Data Portability ---
Author Organization [facility] Service Address [address] [place] [address] Assessment Encounter Date Assessment Date Assessment LastModified by Organization Details LastModified Time 05/08/2023 05/08/2023 [id number] [place] [id number] (ELECTRIC MOTOR TESTER) [facility] MODERATE MUST MEET 2 OUT OF 3 [...] COVERED Not available 05/08/2023 14:54:46 08/27/2023 08/27/2023 [id number] [place] [id number] (ELECTRIC MOTOR TESTER) [facility] MODERATE MUST MEET 2 OUT OF 3 [...] COVERED Not available 08/27/2023 11:19:06 12/17/2023 12/17/2023 [id number] [place] [id number] (ELECTRIC MOTOR TESTER) [facility] MODERATE MUST MEET 2 OUT OF [...] THAT IS COVERED Not available 12/17/2023 10:17:58 07/21/2024 07/21/2024 [id number] [place] [id number] (ELECTRIC MOTOR TESTER) [facility] MODERATE MUST MEET 2 OUT OF [...] EACH ELEMENT THAT IS COVERED Not available 07/21/2024 10:55:26 Plan of Treatment Reminders Order Date Submit Date Provider Last Modified By Organization Details Last Modified Time Details Appointments FOLLOW UP 15 2024 10:15A M DR HENDRICKSON Not available Not available Not available Lab HbA1c (hemoglob in A1c), blood 2024 025 [facility], [address] [place] [address], [place], [address], 07/21/2024 10:57:13 Referral None recorded. Procedures None recorded. Surgeries None recorded. Imaging US, echocardi ogram, transthor acic, complete, w/ color flow 2023 024 hrubner Not available 03/26/2024 09:22:07 Medication Orders Trulicity 1.5 mg/0.5 mL subcutane ous pen injector 2023 024 VESTA Not available 12/17/2023 10:21:48 azithromy karol 250 mg tablet 2022 023 Not available 08/27/2023 10:46:58 Patient TargetsNo targets recorded. Patient Instructions Encounter Date Encounter Id Patient Instructions Last Modified By Organization Details Last Modified Time 03/25/2024 [id number] deciding about using medicines to quit smoking [...] Abnormal Flag Note LastModifiedBy Organization Detail LastModifiedTime 04/10/2004/10/2024 US, echoc ardio gram, trans thora cic, compl ete, w/ color flow No observ ation record ed. [address], [address], 04/10/2024 20:52:21 Result Notes None recorded. Problems Name Problem SNOMED Code Status Onset Date Resolution Date Notes Provider Name and Address Organization Details Recorded Time Hypercho lesterol emia 14696529 Active 2019 Not Available [facility] 10:52:05 COVID-19 125084568 Active 2020March 2021 Chuyita gonzales [place] - [facility] 10:19:08 Concussi on injury of brain 693362687 Active 2021 Cheo Hendrickson, DO [address] [place] [address], [phone], [facility] 2 11:44:23 Tobacco dependen ce syndrome 23068598 Active 2021 Cheo Hendrickson, DO [address] [place] [address], [phone], [facility] 2 11:44:23 Aortic valve regurgit ation 92295791 Active 2022 Cheo Hendrickson, DO [address] [place] [address], [phone], [facility] 3 14:45:15 Mitral valve regurgit ation 69805438 Active 2022 Cheo Hendrickson, DO [address] [place] [address], [address], [facility] 3 14:45:28 Liver enzymes level above referenc e range 027966482 Active 2022 Cheo Hendrickson, DO [address] [place] [address], [address], [facility] 3 14:46:58 Viral upper respirat ory tract infectio n 367501506 Active 2022 Cheo Hendrickson, DO [address] [place] [address], [address], [facility] 3 12:33:05 Atypical pneumoni a 682632112 Active 2022 Cheo Hendrickson, DO [address] [place] [address], [address], [facility] 3 14:54:16 Obstruct lazarus sleep apnea syndrome 93229179 Active 2017 Not Available [facility] 1 10:52:05 Prediabe virgen 043033656 Completed 201711/12/2017 Cheo Hendrickson, DO [address] [place] [address], [address], [facility] 8 11:14:51 Hyperten sive disorder 38087972 Active 2017 Not Available [facility] 1 10:52:05 Migraine 87687121 Active 2017 Not Available [facility] 1 10:52:05 History of reductio n of breast 821789869 Active 2017 b/l Not Available [facility] 1 10:52:05 History of obesity 991729967 Active 2017 Not Available [facility] 1 10:52:05 Diabetes mellitus 09486636 Active 2017 Not Available [facility] 1 10:52:05 Problem Notes None recorded. Procedures Surgical History Date Name Laterality Status Provider Name and Address Organization Details Recorded Time 7 Colonoscopy completed Chuyita Dumont [facility] 06/10/2018 16:31:33 Imaging Results Imaging Date Name Status LastModified by Organiz ation Details LastModified Time 04/10/2024 US, echocardiog rebecca, transthorac ic, complete, w/ color flow completed [address], [address], 04/10/2024 20:52:21 Procedure Notes None recorded. Medical Equipment None Reported. Allergies No known drug allergies Medications Name Sig Start Date Stop Date Status Note LastModified by Organization Details LastModified Time amoxicillin 500 mg capsule 08/28 completed Not Available Not Available Not Available metformin 500 mg tablet TAKE 1 TABLET BY MOUTH EVERY DAY IN THE MORNING 2024 active Not Available Not Available Not Avai lable atorvastati n 10 mg tablet Take 1 [...] Available Not Available Januvia 100 mg tablet 1 po qd 2024 active Not Available Not Available Not Avai lable OneTouch Verio test strips Take 1 strip twice a day by miscell. route for 90 days. active Not Available Not Available No t Available OneTouch Delica Lancets 30 gauge Take 1 each twice a day by miscell. route for 50 days. active Not Available Not Available No t Available Trulicity 1.5 mg/0.5 mL subcutaneou s pen injector ADMINISTE R 1.5 MG UNDER THE SKIN EVERY WEEK 2024 active Not Available Not Available Not Avai lable Trulicity 0.75 mg/0.5 mL subcutaneou s pen [...] Updated DateTime 3 171.45 cm 26.4 kg/m2 77726.5 8 g 77 /min 97 % 97 % 145 mm[Hg] 82 mm[Hg] Yolanda Ware [facility] 3 13:58:56 Date Recorded Body height Body mass index (BMI) Body weight Heart rate Oxygen saturation Oxygen saturation in Arterial blood by Pulse oximetry Systolic blood pressure Diastolic blood pressure Provider Name and Address Organization Details Last Updated DateTime 4 171.45 cm 27.2 kg/m2 60336.6 2 g 61 /min 99 % 99 % 162 mm[Hg] 98 mm[Hg] Cheo Hendrickson, DO [address] [place], [address] [place] [address] Internal Medicine 4 10:46:13 Date Recorded Body height Body mass index (BMI) Body weight Heart rate Oxygen saturation Oxygen saturation in Arterial blood by Pulse oximetry Systolic blood pressure Diastolic blood pressure Provider Name and Address Organization Details Last Updated DateTime 4 171.45 cm 26.1 kg/m2 39429.8 3 g 66 /min 99 % 99 % 166 mm[Hg] 90 mm[Hg] Leandra Sergio [facility] 4 10:02:11 Date Recorded Body height Body mass index (BMI) Body weight Heart rate Oxygen saturation Oxygen saturation in Arterial blood by Pulse oximetry Systolic blood pressure Diastolic blood pressure Provider Name and Address Organization Details Last Updated DateTime 4 171.45 cm 26.1 kg/m2 64940.1 1 g 77 /min 100 % 100 % 138 mm[Hg] 80 mm[Hg] Claritza Robles [facility] 4 13:41:12 Date Recorded Body height Body mass index (BMI) Body weight Heart rate Oxygen saturation Oxygen saturation in Arterial blood by Pulse oximetry Systolic blood pressure Diastolic blood pressure Provider Name and Address Organization Details Last Updated DateTime 5 171.45 cm 25.2 kg/m2 12488.5 6 g 74 /min 100 % 100 % 148 mm[Hg] 80 mm[Hg] Claritza Robles [facility] Internal Medicine 5 10:34:15 Social History Question Answer Notes LastModified by Organizat ion Details LastModified Time Tobacco Smoking Status Former Smoker [facility] 01/24/2023 09:08:35 What Was The Date Of Your Most Recent Tobacco Screening? 03/25/2024 [email or web address] Information not available 03/25/2024 How Much Tobacco Do You Smoke? No [email or web address] Information not available 01/24/2023 Sex: Unknown Functional Status Question Answer Note LastModified by Organization D etails LastModified Time Do you or have you ever used any other forms of tobacco or nicotine? No [email or web address] Information not available 01/24/2023 Mental Status None recorded. Family History Nothing Reported. Medical History Condition Response Coronary Artery Disease N Gout N Other N Kidney Stones N Blood Diseases N Blood Transfusion N Breast Cancer N Lung Disease N Depression N COPD [...] virus, quadrivalent, preservative 1 completed Yolanda Gencarelle [facility] 01/24/2023 08:53:02 COVID-19, mRNA, LNP-S, PF, 100 mcg/0.5mL dose or 50 mcg/0.25mL dose 1 completed Yolanda Gencarelle [facility] 01/24/2023 08:53:02 influenza, unspecified formulation 2 completed Yolanda Gencarelle null, [facility] 01/24/2023 08:53:02 influenza, unspecified formulation 3 completed Blayne Hendrickson null, [facility] 08/24/2023 16:11:48 Influenza, split virus, quadrivalent, preservative 9 completed Yolanda Gencarelle null, [facility] 01/24/2023 08:53:02 Influenza, split virus, quadrivalent, preservative 0 completed Yolanda Gencarelle null, [facility] 01/24/2023 08:53:02 pneumococcal polysaccharide PPV23 0 completed Yolanda Gencarelle null, [facility] 01/24/2023 08:53:02 zoster recombinant 0 completed Yolanda Gencarelle null, [facility] 01/24/2023 08:53:02 zoster recombinant 1 completed Yolanda Gencarelle null, [facility] 01/24/2023 08:53:02 Tdap 1 completed Betty Figueroa null, [facility] 07/13/2020 10:57:02 COVID-19, mRNA, LNP-S, PF, 100 mcg/0.5mL dose or 50 mcg/0.25mL dose 1 completed Yolanda Gencarelle [facility], [facility] 01/24/2023 08:53:02 Influenza, split virus, quadrivalent, preservative 8 completed Yolanda Gencarelle null, [facility] 01/24/2023 08:53:02 COVID-19, mRNA, LNP-S, PF, 100 mcg/0.5mL dose or 50 mcg/0.25mL dose 1 completed Yolanda Gencarelle [facility], [facility] 01/24/2023 08:53:02 Past Encounters Encounter ID Performer Location Encounter Start Date Encounter Closed Date Diagnosis/Indication Diagnosis SNOMED-CT Code Diagnosis ICD10 Code Diagnosis Note [id number] Cheo Hendrickson [facility] [address] [facility],[place] [address] 11/12/2017 10:38:30 11/12/2017 13:14:04 Diabetes mellitus 84351674 E11.9 doing great and has been exercising every day 6.8 on no meds has eye exam next week Hypertensive disorder 38 419790 I10 no meds bp excellent cont to exercise [id number] Cheo Hendrickson [facility] [address] [facility] [address] 02/27/2018 10:28:27 02/27/2018 11:35:54 Diabetes mellitus 16082533 E11.9 doing great and has been exercising every day 6.0 on no meds awesome Hypertensive disorder 38 256443 I10 no meds bp excellent cont to exercise [id number] Cheo IsidroJuan Manueljenniffer [facility] [address] [facility], [place] [address] 06/10/2018 11:21:20 06/10/2018 12:22:00 Diabetes mellitus 24018465 E11.9 doing great and has been exercising every day 6.0 on no meds awesome had sx from lipitor so will try rosuvastat as last ditch attempt Hypertensive disorder 38 347780 I10 no meds bp excellent cont to exercise Screening for malignant neoplasm of colon 917353335 Z12.11 Screening for malignant neoplasm of breast 243427821 Z12.31 [id number] Cheo IsidroJuan Manueljenniffer [facility] [address] [facility], [place] [facility] [place] [address] 07/10/2018 15:01:34 07/10/2018 15:26:13 Cough 66370356 R05 Fever 946923669 R50.9 Diabetes mellitus 357608 09 E11.9 pt aware to complete A1C [id number] Cheo IsidroJuan Manueljenniffer [facility] [address] [facility] [place] [address] 09/01/2019 11:52:07 09/01/2019 12:16:48 Hypertensive disorder 71893619 I10 no meds bp excellent cont to exercise Diabetes mellitus 243983 09 E11.9 did not keep a good diet and drinking etoh relates has not been good will start metformin 500 daily for now had sx from lipitor so will try rosuvastat in as last ditch attempt needs to find out which meter is covered Hypercholesterolemia 136 47818 E78.00 [id number] Cheo Hendrickson [facility] [address] [facility] [address] [facility] [place] [place] [address] 12/15/2019 10:19:14 12/15/2019 11:22:01 Hypertensive disorder 26638467 I10 no meds bp excellent cont to exercise Diabetes mellitus 460186 09 E11.9 did not keep a good diet and drinking etoh relates has not been good will start metformin 500 daily for now had sx from lipitor so will try rosuvastat in as last ditch attempt needs to find out which meter is covered Hypercholesterolemia 136 10439 E78.00 doing great with rosuvastat [id number] Cheo Hendrickson [facility] [address] [facility],[place] [facility] [place] [place] [address] 03/15/2020 10:43:24 03/15/2020 11:59:16 Hypertensive disorder 29105808 I10 no meds bp excellent cont to exercise Diabetes mellitus 620812 09 E11.9 did not keep a good diet and drinking etoh relates has not been good will start januvia daily for now but the problem with this is the cost 120$$$$$ needs to start checking sugars needs to find out which meter is covered Hypercholesterolemia 136 91712 E78.00 doing great with rosuvastat Liver enzy mes level above reference range 281327334 R74.8 will rechk in may and will have her cut down on partying etc [id number] Cheo Hendrickson [facility] [address] [facility] [address] [address] 06/16/2020 09:49:40 06/16/2020 11:09:40 Hypertensive disorder 17167961 I10 no meds bp excellent cont to exercise Diabetes mellitus 295419 09 E11.9 januvia is well and is working great well tolerated relates has been good with diet and glucose readings doing good with diet will rechk a1c 3 mo Obstructiv e sleep apnea syndrome 10794020 G47.33 stable right now [id number] Cheo Hendrickson [facility] [address] [facility] [address], ite [facility] [place] [address] 09/13/2020 10:20:18 09/13/2020 11:03:58 Hypertensive disorder 80125623 I10 no meds bp excellent cont to exercise sw will need to rechk after her echo Diabetes mellitus 496774 09 E11.9 nahiduvia is well and is working great well tolerated relates has been good with diet and glucose readings doing good with diet will rechk a1c 3 mo Hypercholesterolemia 136 71315 E78.00 doing great with rosuvastat Atypical chest pain 1025 15024 R07.89 [id number] Cheo Hendrickson DO [facility] [address] [facility], [place] [address] 11/23/2020 13:57:35 11/23/2020 15:37:25 Concussion injury of brain 412260751 S06.0X0S with loss of consciousn ess discussed with patient echo report would like to discuss with dr. hendrickson Syncope 036274927 R55 with LOC and head injury Aortic cha ve regurgitation 47746893 I35.1 worsened since last echo and new aortic root dilation Mitral cha ve regurgitation 92640094 I34.0 stable compared [id number] Cheo Hendrickson DO [facility] [address] 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, [place] [address] 12/31/2020 11:13:06 12/31/2020 12:14:00 Diabetes mellitus 20235034 E11.9 januvia is well and is working great well tolerated a1c is 6.9relates has been good with diet and glucose readings doing good with diet will rechk a1c 3 mo Hypertensive disorder 38 710373 I10 no meds bp excellent cont to exercise sw will need to rechk after her echo Obstructiv e sleep apnea syndrome 60308957 G47.33 stable right now Benign par oxysmal positional vertigo 859039139 H81.13 will need zyrtec D for the serous otitis seen on exam both ears Acute folliculitis 07430 7007 L73.9 [id number] Cheo Hendrickson [facility] [address] [facility], [place] [facility] [place] [address] 05/30/2021 10:08:21 05/30/2021 12:25:33 Hypertensive disorder 16714542 I10 no meds bp excellent cont to exercise sw will need to rechk after her echo Diabetes mellitus 666407 09 E11.9 a1c is up to 8.7 she has now shown signs of worsening neuropathy with hoahaoism of tingling in feet at nightalso microalb has sl increased although still normalwe will try the trulicity rx again and see if the insurance will cover nowi am very worried about her and conveyed thatwill rechk a1c 3 mo Liver enzy mes level above reference range 136864765 R74.8 we will hold the rosuvastat in and rechk in 1 month [id number] Cheo Hendrickson [facility] [address] [facility], [place] [address] 08/29/2021 10:43:14 08/29/2021 15:08:43 Diabetes mellitus 00174724 E11.9 a1c is down to 6.6 from 8.7 doing great with trulicitye ating ok needs to increase activitywe will decrease the metformin to one tablet per day Hypertensive disorder 38 525720 I10 no meds bp excellent cont to exercise sw will need to rechk after her echo [id number] Cheo Hendrickson [facility] [address] [facility], [place] [address] 11/30/2021 10:50:07 11/30/2021 15:41:58 Hypertensive disorder 17305519 I10 no meds bp excellent cont to exercise sw will need to rechk after her echo Diabetes mellitus 462656 09 E11.9 a1c is down to 6.6 from 8.7 doing great with trulicitye ating ok needs to increase activitywe will decrease the metformin to one tablet per day Concussion injury of brain 850289256 S06.0X0S quiet and negative signs etc Tobacco de pendence syndrome 32966405 F17.200 discussed and quit in past already [id number] Cheo Hendrickson [facility] [address] [facility] [address], [place] [address] 03/22/2022 10:19:54 03/22/2022 11:35:03 Hypertensive disorder 40908350 I10 no meds bp excellent cont to exercise sw will need to rechk after her echo Diabetes mellitus 576976 09 E11.9 a1c is down to 6.5 and was 6.6 from 8.7 doing great with trulicitye ating ok needs to increase activitywe will decrease the metformin to one tablet per day Hypercholesterolemia 136 21262 E78.00 doing great with rosuvastat [id number] Cheo Hendrickson [facility] [address] [facility], [employer] [place] [address] 08/28/2022 13:55:54 08/28/2022 15:07:32 Diabetes mellitus 97845674 a1c isup to 8.8 and prior was down to 6.5 and was 6.6 from 8.7will increase trulicity and go back to 2 metformin dailyeatin g poorly needs to increase activity Hypertensive disorder 38 918136 I10 no meds bp excellent cont to exercise sw will need to rechk after her echo Obstructiv e sleep apnea syndrome 44856714 G47.33 stable right now Concussion injury of brain 349815500 S06.0X0S quiet and negative signs etc Screening mammography 24 487280 Z12.31 Liver enzy mes level above reference range 139650071 R74.8 we will still hold the rosuvastat in due to elevated levels andamount of etoh [id number] Cheo Hendrickson [facility] [address] [facility] [address],[place] [place] [facility] [place] [address] 11/01/2022 08:23:04 11/01/2022 14:24:08 Diabetes mellitus 64777807 E11.9 a1c is now down to 7.6 and she is doing much better she is walking daily and eating better no partying and quit tobacco we will stick to this plan and rechk in jan Liver enzy mes level above reference range 778254848 R74.8 we will still hold the rosuvastat in due to elevated levels andamount of etoh but levels are getting better Tobacco de pendence syndrome 92445496 F17.200 discussed and quit and is actually doing well without the past several mo Viral uppe r respiratory tract infection 491701890 J06.9 covid neg she will cont to treat conserv and will have her call if ay sudden change 'whereupon we would prob treat for pneumoniti s with medrol and zpak [id number] Cheo Hendrickson [facility] [address] [facility] [address] 01/24/2023 08:52:01 01/24/2023 09:45:50 Diabetes mellitus 38905051 E11.9 a1c is now down to 6.2 was 7.6 and she is doing much better she is walking daily and eating better no partying and quit tobacco we will stick to this plan and rechk in aprhas been getting some random nausea episodes that are quick and disappear this is c/w trulicity Hypercholesterolemia 136 17815 E78.00 off all statins due to lft will discuss the injectable s with dr payton once we see Mitral cha ve regurgitation 58724475 I34.0 follows with cardiology now Hypertensive disorder 38 981356 I10 no meds bp excellent cont to exercise sw will need to rechk after her echo Liver enzy mes level above reference range 741041289 R74.8 we will still hold the rosuvastat in due to elevated levels andamount of etoh but levels are getting better [id number] Cheo Hendrickson DO [facility] [address] [facility] [address],[place] [address] 05/08/2023 13:51:20 05/08/2023 15:11:51 Hypercholesterolemia 85337032 E78.00 off all statins due to lft will discuss the injectable s with dr payton once we see Diabetes mellitus 822395 09 E11.9 a1c is now up tp 6.6 was down to 6.2 was 7.6 and she is doing much better she is walking daily and eating better no partying and quit tobacco we will stick to this plan and rechk in apr been getting some random nausea episodes that are quick and disappear this is c/w trulicity Hypertensive disorder 38 544738 I10 no meds bp excellent cont to exercise sw will need to rechk after her echo Atypical pneumonia 32698 6009 J18.9 [id number] Cheo Hendrickson [facility] [address] [facility] [address] 08/27/2023 10:41:08 08/27/2023 11:34:36 Hypercholesterolemia [id number] E78.00 off all statins due to lft will discuss the injectable s with dr payton once we see Hypertensive disorder 38 117254 I10 bp is up relates was in a great hurry sw will need to rechk after her echo Liver enzy mes level above reference range [id number] R74.8 we will still hold the rosuvastat in due to elevated levels andamount of etoh but levels are getting better Diabetes mellitus 866649 09 E11.9 a1c is still at 6.6 was down to 6.2 was 7.6 and she is doing much better she is walking daily and eating better no partying and quit tobacco we will stick to this plan [facility] getting some random nausea episodes that are quick and disappear this is c/w trulicity [id number] Cheo Hendrickson [facility] Internal Medicine [address] [facility] [address] 12/17/2023 09:54:11 12/17/2023 11:28:46 Depression screening [id number] Z13.31 SCREENING NEGATIVE Hypertensive disorder 38 855012 I10 bp is up relates was in a great hurry is doing bettter since losing wgt Diabetes mellitus 270537 09 E11.9 a1c is still at 7.1 was 7.9 and she is doing much better she is walking daily and eating better no partying and quit tobacco we will stick to this plan and rechk in apr been getting some random nausea episodes that are quick and disappear this is c/w trulicity Hypercholesterolemia 136 28256 E78.00 off all statins due to lft will discuss the injectable s with dr payton once we see [id number] Cheo Hendrickson [facility] Internal Medicine [address] [facility] [address],[place] [address] 03/25/2024 13:33:13 03/25/2024 14:39:45 Diabetes mellitus 18664831 E11.9 aa1c is 6.7 Hypertensive disorder 38 252394 I10 bp is up relates was in a great hurry is doing bettter since losing wgt Mitral cha ve regurgitation 95482411 I34.0 follows with cardiology now Tobacco de pendence syndrome 16423031 F17.200 discussed and quit and is actually doing well without the past several mo Aortic cha ve regurgitation 42744716 I35.1 [id number] Cheo Hendrickson [facility] Internal Medicine [address] [facility] [place] [place] [address] 07/21/2024 10:25:27 07/21/2024 11:04:16 Diabetes mellitus 01563696 E11.9 a1c is 6.7 will cont to follow Hypercholesterolemia 136 85811 E78.00 off all statins due to lft will discuss the injectable s with dr payton once we see Hypertensive disorder 38 264786 I10 bp is up relates was in a great hurry is doing bettter since losing wgt Liver enzy mes level above reference range 292025219 R74.8 we will still hold the rosuvastat in due to elevated levels andamount of etoh but levels are getting better Health Concerns Section Related Observation LastModified by Organization Detai ls LastModified Time None Recorded Concern Status LastModified by Organization Details LastModified Time None Recorded Advance Directives Directive None Recorded Payers Encounter Date Sequence Insurance Name Policy Number Policy Garcia Covered Member ID Garcia Member ID Guarantor Name 05/08/2023 1 [place] [facility] [id number] Katrin Cutler [id number] Katrin Cutler 08/27/2023 1 [place] [facility] ([facility] [id number] Katrin Cutler [id number] Katrin Cutler 12/17/2023 1 [place] [facility] [employer] ([facility] [id number] Katrin Cutler [id number] Katrin Cutler 03/25/2024 1 [facility]: [facility] [id number] Katrin Cutler [id number] Katrin Cutler 07/21/2024 1 [facility]: [facility] ([facility] [id number] Katrin Cutler [id number] Katrin Cutler Notes Date Note Type Note Provider Name and Address Organization Details Recorded Time 3 text/htm l Care Management - DiabetesReported [...] congestionreviewed lab in detail Cheo Hendrickson DO [address] [place] [address], [phone], [facility] Internal Medicine 05/08/2023 14:57:24 4 text/htm l here for rechk and is doing ok and relatesfeeling good overallwalking morebp is up but has been running around to get here 'has not gotten her lab relates that she is leary of doing cholest shot from dr payton a1c is 6.6 LDL 90 HDL 63 Cheo Hendrickson DO [address] [place], [address], [facility] 08/27/2023 11:19:59 4 text/htm l [...] has cut back a great deal Cheo Hendrickson DO [address] [place] [address], [phone], [facility] 12/18/2023 00:02:28 4 text/htm l [...] wgtdue to see tata in may Cheo Hendrickson DO [address] [place], [address], [facility] 03/25/2024 13:55:18 5 text/htm l here for rechkrelates that she is doing ok but just lost her mom denies any other physical probreviewed labrev echo stable overall Cheo Hendrickson, DO [address] [facility], [place], [address], [facility] Internal Medicine 07/21/2024 10:57:43 OBGyn Episode No OBEpisode recorded.
[2024-11-05 14:13] LABS: Estimated Average Glucose 146 mg/dL; Hemoglobin A1C 191.5431 umol/L; Hemoglobin A1c % 6.7 % (<6.0); Total Hemoglobin (HGBA1C) 3833.6055 umol/L
== END 2024-11-05 11:21 | disposition home or self-care (01) ==
LOC: HO.MANLDS 11:20
PROVIDERS: Visit Provider Internal Medicine
DX: E11.9 Type 2 diabetes mellitus without complications (principal)
CPT/HCPCS: 36415; 83036

== ENCOUNTER 2025-05-08 09:15 | Outpatient (REF) | payer BC, SELFPAY ==
--- OUTSIDE RECORDS SUMMARY | 2025-05-08 09:58 | XMS_ITS | Encounter Summary ---
Author Organization [facility] Address [address] [facility] [address] [place] [address] Phone Care Team Providers Care Senior Communications Specialist Name Role Phone Cheo Ralph DO Unavailable Oneida Cagle CNM Unavailable Chuyita Thomas NP Unavailable Tarsha Benítez MD Unavailable [phone] Boaz Mcgowan MD Unavailable Matilda Garcia MD Unavailable [phone] Belinda Cheng MD Unavailable [phone] Rhonda Almanza MD Unavailable [phone] Cheo Ralph DO Primary Care Provider [phone] Cheo Ralph DO Unavailable Cheo Ralph DO Primary Care Provider [phone] Encounter Details Date Type Department Care Team (Late st Contact Info) Description 09/13/2017 Transcribe Orders [facility] Phleb Main [address] [place] [address] Cheo Ralph DO [address] [facility] [address] Routine general medical examination at a health care facility (Primary Dx) Social History Tobacco Use Types Packs/Day Years Used Date Smoking Tobacco: Never Assessed Comments Unknown Sex and Gender Information Value Date Recorded Sex Assigned at Female 11/19/2020 9:58 AM EDT Legal Sex Female 9:39 PM EDT Gender Identity Female 11/19/2020 9:58 AM EDT Sexual Orientation Not on file documented as of this encounter Plan of Treatment Upcoming Encounters Date Type Department Care Team (Late st Contact Info) Description 06/30/2025 10:30 AM EST Office Visit [facility] [address] [place] [address] 3rd Floor, [address] [place] [address] Evin Olivo MD [address] [place] [address], [address] [address] 08/20/2025 11:40 AM EST Office Visit [facility] [address] 3rd Floor, [address] [place] [address] Piter Young MD [address] [place] [address], [address] [place] [address] [email or web address] documented as of this encounter Results * Miscellaneous lab test (09/13/2017 10:05 AM EDT) Pathologist [facility] TESTS REQUESTED ISLET CELL ANTIBODY [facility] SPECIMEN/TUBE TYPE SST [facility] REQUEST RECEIVED Request received. A separate order for the requested test will be generated by the laboratory. [facility] Blood 09/13/2017 10:0 5 AM EDT 09/13/2017 10:08 AM EDT us Cheo A Bigda DO LAB BLOOD ORDERABLES Final Resul t [facility] [address] [place] [address] * [facility]CP IgG antibodies (09/13/2017 10:05 AM EDT) [facility] AB, S <15.6 <20.0 (Negative) [facility] DPT OF LAB MED AND PAT+ Blood 09/13/2017 10:0 5 AM EDT 09/13/2017 10:08 AM EDT us Cheo Ralph DO LAB BLOOD BKR ORDERABLES Final R esult [facility] DPT OF LAB MED AND PAT+ [address] [place] [address] documented in this encounter Visit Diagnoses Diagnosis Routine general medical examination at a health care facility- Primary documented in this encounter Care Teams Senior Communications Specialist Relationship Specialty Start Date End Date Cheo Ralph DO PCP - General 06/28/17 01/03/25 Cheo Ralph DO [address] [place] [address] PCP - General Internal Medicine 01/04/25 Cheo Ralph DO Historical LMR Provider 04/14/17 01/03/25 Oneida Cagle CNM [address] [place] [address] Historical LMR Provider 04/14/17 Chuyita Bañuelos NP [address] [place] [address] Historical LMR Provider 04/14/17 Tarsha Benítez MD [address] [facility], 2nd [place] [address] Historical LMR Provider 04/14/17 Boaz Mcgowan MD [address] [place] [address] [address] [place] [address] [email or web address] Historical LMR Provider 04/14/17 07/02/21 Matilda Garcia MD [address] [place] [address] Historical LMR Provider 04/14/17 2 Belinda Cheng MD [address] [place] [address] Historical LMR Provider 04/14/17 2 Rhonda Almanza MD [address] [place] [address] Historical LMR Provider 04/14/17 2 Cheo Ralph DO [address] [place] [address] [place] [address] [email or web address] Insurance Assigned Provider 09/29/23 01/03/25 documented as of this encounter Additional Source Comments The information contained in this document represents components of the legal health record. It is not the complete legal health record.[facility]
--- OUTSIDE RECORDS SUMMARY | 2025-05-08 09:58 | XMS_ITS | Encounter Summary ---
Author Organization [facility] Address [address] [facility] [address] [place] [address] Phone Care Team Providers Care Rubber Flap Cutter Name Role Phone ManuelCheo abad DO Unavailable Oneida Cagle CNM Unavailable Chuyita Thomas NP Unavailable Tarsha Benítez MD Unavailable [phone] Boaz Mcgowan MD Unavailable Matilda Garcia MD Unavailable [phone] Belinda Cheng MD Unavailable [phone] Rhonda Almanza MD Unavailable [phone] Cheo Ralph DO Primary Care Provider [phone] Cheo Ralph DO Unavailable Cheo Ralph DO Primary Care Provider [phone] Encounter Details Date Type Department Care Team (Late st Contact Info) Description 03/29/2020 Procedure Pass [address] [address] Social History Tobacco Use Types Packs/Day Years Used Date Smoking Tobacco: Never Assessed Comments No Sex and Gender Information Value Date Recorded Sex Assigned at Female 11/19/2020 9:58 AM EDT Legal Sex Female 9:39 PM EDT Gender Identity Female 11/19/2020 9:58 AM EDT Sexual Orientation Not on file documented as of this encounter Plan of Treatment Upcoming Encounters Date Type Department Care Team ([facility] st Contact Info) Description 06/30/2025 10:30 AM EST Office Visit [facility] [address] [facility] 3rd Floor, [address] [place] [address] Evin Olivo MD [address] [place] [address] 08/20/2025 11:40 AM EST Office Visit [facility] [address] [facility] 3rd [facility], [address] [place] [address] Piter Young MD [address] [place] [address] documented as of this encounter Visit Diagnoses Not on filedocumented in this encounter Care Teams Rubber Flap Cutter Relationship Specialty Start Date End Date Cheo Ralph DO PCP - General 06/28/17 01/03/25 Cheo Ralph DO [address] [facility] [place] [place] [address] PCP - General Internal Medicine 01/04/25 Cheo Ralph DO Historical LMR Provider 04/14/17 01/03/25 Oneida Cagle CNM [address] [place] [address] Historical LMR Provider 04/14/17 2 Chuyita Thomas NP [address] [place] [address] Historical LMR Provider 04/14/17 Tarsha Benítez MD [address] [facility], [address] [place] [address] Historical LMR Provider 04/14/17 Boaz Mcgowan MD [address] [place] [address] Historical LMR Provider 04/14/17 07/02/21 Matilda Garcia MD [address] [place] [address] Historical LMR Provider 04/14/17 2 Belinda Cheng MD [address] [place] [address] Historical LMR Provider 04/14/17 2 Rhonda Almanza MD [address] [place] [address] Historical LMR Provider 04/14/17 2 Cheo Ralph DO [address] [place] [address] [place] [address] Insurance Assigned Provider 09/29/23 01/03/25 documented as of this encounter Additional Source Comments The information contained in this document represents components of the legal health record. It is not the complete legal health record.[facility]
--- OUTSIDE RECORDS SUMMARY | 2025-05-08 09:59 | XMS_ITS | Clinical Summary ---
Author Organization [facility] Address [address] [facility] [address] [place] [address] Phone Care Team Providers Care Assembler Ping Pong Table Name Role Phone Cheo Ralph Primary Care Provider [phone] Allergies No known active allergies Medications SITagliptin phosphate (JANUVIA) 100 MG tablet Januvia 100 mg tablet TAKE 1 TABLET DAILY Active aspirin 81 MG EC tabletIndications :Medication refill take 1 tablet by mouth daily 90 tablet 3 4 Active ONETOUCH DELICA LANCETS 30 gauge Misc Take 1 each twice a day by miscell. route for 50 days. Active ONETOUCH VERIO Strp strips Take 1 strip twice a day by miscell. route for 90 days. Active TRULICITY 1.5 mg/0.5 mL subcutaneous injection ADMINISTER 1.5 MG UNDER THE SKIN EVERY WEEK 5 Active metFORMIN (GLUCOPHAGE) 500 MG tablet Take 500 mg by mouth every morning. 5 Active REPATHA SURECLICK 140 mg/mL PnIj subcutaneous pen injector ADMINISTER 1 ML(140 MG) UNDER THE SKIN EVERY 14 DAYS 2 mL 11 5 Active Active Problems Problem Noted Date Diagnosed Date Anxiety 01/04/2025 Aortic valve regurgitation 08/28/2022 Mitral valve regurgitation 08/28/2022 Obesity 06/21/2020 Diabetes mellitus 11/12/2017 Hypertensive disorder 11/09/2017 Obstructive sleep apnea syndrome 11/09/2017 Encounters Date Type Department Care Team Description 03/18/2025 10:45 AM EDT Office Visit [facility] [address], [address] [place] [address] Evin Olivo MD DAYAMI (obstructive sleep apnea) (Primary Dx) 03/05/2025 Telephone [facility] [address] 3[address], [address] [place] [address] Piter Young MD 03/04/2025 Refill [facility] [address] [place] [address], [address] [place] [address] Piter Young MD Medication Refill 02/17/2025 10:20 AM EDT Office Visit [address] [facility], [address] [place] [address] Piter Young MD Hypertension, unspecified type (Primary Dx); Mixed hyperlipidemia; Agatston coronary artery calcium score greater than 400; DAYAMI (obstructive sleep apnea); Tobacco abuse counseling 02/06/2025 7:48 AM EDT - 02/06/2025 11:59 PM EDT Hospital Encounter [facility] [address] [place] [address] Piter Young MD Discharge Disposition: Home or Self Care from Last 3 Months Immunizations Immunization Administration Dates Next Due [id number] FORMULATION 06/22/2009 INFLUENZA, SPLIT VIRUS, TRIVALENT W/ PRESERVATIV E IM 03/04/2012 Influenza Quadrivalent w/ Preservative IM 2018,02/28/2018 Influenza, Unspecified Formulation 04/21/2010 Tdap 07/12/2020 Family History Medical History Relation Comments Coronary artery disease Father Prostate cancer Father Heart failure Mother Breast cancer Neg Hx Relation Status Comments Father Mother Social History Tobacco Use Types Packs/Day Years Used Date Smoking Tobacco: Some Days Cigarettes Smokeless Tobacco: Never Tobacco Cessation:Ready to Q uit: Not Asked; Counseling Given: Not Answered Alcohol Use Standard Drinks/Week Comments Yes 1 (1 standard drink = 0.6 oz pur e alcohol) Education Answer Date Recorded Are you interested in more education? Not on sara e 10/19/2022 Are you concerned about learning? Not on file 10/19/2022 No 10/19/2022 No 10/19/2022 Digital Access Answer Date Recorded No 11/18/2022 No 11/18/2022 Reliable internet access at home? Not on file 11/18/2022 Device with a working camera? Not on file Comments No Sex and Gender Information Value Date Recorded Sex Assigned at Female 11/19/2020 9:58 AM EDT Legal Sex Female 9:39 PM EDT Gender Identity Female 11/19/2020 9:58 AM EDT Sexual Orientation Not on file Last Filed Vital Signs Vital Sign Reading Time Taken Comments Blood Pressure 160/90 03/18/2025 10:45 AM EDT Pulse 68 03/18/2025 10:45 AM EDT Temperature 37.2 C (99 F) 01/04/2025 12:21 PM EDT Respiratory Rate 16 01/04/2025 12:21 PM EDT Oxygen Saturation 98% 03/18/2025 10:45 AM EDT Inhaled Oxygen Concentration - - Weight 73 kg (161 lb) 03/18/2025 10:45 AM EDT Height 161.5 cm (5' 3.58 ) 03/18/2025 10:45 AM E DT Body Mass Index 28 03/18/2025 10:45 AM EDT Plan of Treatment Upcoming Encounters Date Type Department Care Team (Late st Contact Info) Description 06/30/2025 10:30 AM EST Office Visit [facility] [address] [facility], [address] [place] [address] Evin Olivo MD [address] [place] [address], [address] [address] 08/20/2025 11:40 AM EST Office Visit [facility] [address], [address] [place] [address] Piter Young MD [address] [place] [address], [address] [address] Health Maintenance Due Date Last Done Comments DEPRESSION SCREENING 1978 SMOKING Hx and SMOKELESS TOBACCO SCREENING 09/16/1979 HEPATITIS C SCREENING 1984 HIV ONE-TIME SCREENING (18-65 YEARS) 1984 COLOGUARD 09/16/2011 FIT TEST 09/16/2011 FOBT 09/16/2011 SIGMOIDOSCOPY 09/16/2011 VIRTUAL COLONOSCOPY 09/16/2011 DIABETIC EYE EXAM 06/21/2020 PNEUMOCOCCAL VACCINES (50+ years) (2 of 2 - PCV) 04/22/2021 04/22/2020 CREATININE LEVEL 11/19/2021 11/19/2020 PAP SMEAR 06/21/2023 06/21/2020, 02/23, 03/04/2012 URINE MICROALBUMIN/CREATININE RATIO 11/01/2023 10/31/2022, 10/31/2022, 08/23/2022, Additional history exists HEMOGLOBIN A1C 06/05/2024 12/05/2023, 07/27, 05/03/2023, Additional history exists INFLUENZA VACCINE (#1) 2025 , 05/08/2023, 06/05/2022, Additional history exists COVID-19 VACCINE ( season) 2025 06/05/2022, 05/31/2021, 03/31/2021, Additional history exists MAMMOGRAM 03/12/2025 03/12/2023, 04/26, 03/25/2013 BLOOD PRESSURE 2025 03/18/2025 LIPID PANEL 02/06/2026 02/06/2025, 07/27, 05/03/2023, Additional history exists COLONOSCOPY 12/29/2026 05/02/2017 COLORECTAL CANCER SCREENING 12/29/2026 Adult Td,Tdap Booster 07/12/2030 07/12/2020 RSV VACCINE (1 - 1-dose 75+ series) 2041 ZOSTER VACCINES Completed 07/12/2020, 04/22/2020 HEPATITIS A VACCINES Aged Out No long er eligible based on patient's age to complete this topic HIB VACCINES Aged Out No longer eligi ble based on patient's age to complete this topic IPV VACCINES Aged Out No longer eligi ble based on patient's age to complete this topic MENINGOCOCCAL VACCINES (ACWY) Aged Out No longer eligible based on patient's age to complete this topic MENINGOCOCCAL VACCINES (B) Aged Out N o longer eligible based on patient's age to complete this topic Medical Devices Not on file Procedures Procedure Name Priority Date/Time Associated Diagnosis Comments LIPID PANEL Routine 02/06/2025 8:04 AM EDT Mixed hyperlipidemia BI MAMMOGRAM SCREENING WITH TOMOSYNTHESIS WITH CAD (BILATERAL) Routine 03/12/2023 1:07 PM EDT Breast screening BASIC METABOLIC PANEL (BMP) STAT 11/19/2020 10:33 AM EDT PAP TEST Routine 06/21/2020 12:00 AM EST HM COLONOSCOPY FOR RESULT ENTRY ONLY Routine 05/02/2017 from Last 3 Months or Most Recently Relevant to Health Maintenance Results * (ABNORMAL) Lipid panel (02/06/2025 8:04 AM EDT) HDL 80 mg/dL [facility] Comment: Interpretation <40 mg/dL: Low HDL cholesterol (major risk factor for CHD) Greater than or equal to 60 mg/dL: High HDL cholesterol ( negative risk factor for CHD) HDL - cholesterol is affected by a number of factors, e.g. smoking, excerise, hormones, sex and age. CHOLESTEROL 98 0 - 240 mg/dL [facility] TRIGLYCERIDES 46 30 - 160 mg/dL [facility] LDL 9(L) 50 - 129 mg/dL [facility] Comment: LDL levels in terms of risk for coronary heart disease: <100 mg/dL: Optimal 100-129 mg/dL: Near or above optimal 130-159 mg/dL: Borderline high 160-189 mg/dL: High >190 mg/dL: Very High CARDIAC RISK RATIO 1.2(L) 3.3 - 4.4 [facility] Blood 02/06/2025 8:04 AM EDT 02/06/2025 8:08 AM EDT us Piter Young MD LAB BLOOD BKR ORDERABLES Belgica pickard Result [facility] [address] [place] [address] * BI MAMMOGRAM SCREENING WITH TOMOSYNTHESIS WITH CAD (BILATERAL) (03/12/2023 1:07 PM EDT) Anatomical Region Laterality Modality Breast Left, Breast Right, Breast Bilateral Bila teral Mammography 03/22/2023 4:36 PM EDT Impressions 03/22/2023 4:38 PM EDT No findings suspicious for malignancy are identified. In the absence of a worrisome palpable abnormality, annual screening mammography is recommended. BI-RADS CATEGORY: 1 - Negative. DENSITY: There are scattered fibroglandular densities. Narrative 03/22/2023 4:38 PM EDT AVAILABLE COMPARISON: 05/17/2020 through 08/09/2005 Bilateral 3-D tomosynthesis with 2-D reconstructions in the CC and MLO projection. Computer-aided detection system was utilized. No new mass, asymmetry, architectural distortion or suspicious calcifications have become apparent in either breast. Procedure Note Avery Edwards MD - 03/22/2023 AVAILABLE COMPARISON: 05/17/2020 through 08/09/2005 Bilateral 3-D tomosynthesis with 2-D reconstructions in the CC and MLOprojection. Computer-aided detection system was utilized. No new mass, asymmetry, architectural distortion or suspiciouscalcifications have become apparent in either breast. IMPRESSION: No findings suspicious for malignancy are identified. In the absence of aworrisome palpable abnormality, annual screening mammography isrecommended. BI-RADS CATEGORY: 1 - Negative. DENSITY: There are scattered fibroglandular densities. us Cheo A Bigda DO IMG MG EXAMS Final Result * (ABNORMAL) Basic metabolic panel (11/19/2020 10:33 AM EDT) SODIUM 140 133 - 146 mmol/L [facility] CHLORIDE 102 96 - 108 mmol/L [facility] POTASSIUM 4.4 3.3 - 5.1 mmol/L [facility] CO2 26 21 - 35 mmol/L [facility] BUN 9 6 - 19 mg/dL [facility] CREATININE 0.50 0.5 - 1.5 mg/dL [facility] GLUCOSE 171(H) 70 - 99 mg/dL [facility] CALCIUM 9.2 8.4 - 10.3 mg/dL [facility] EGFR 110 >59 mL/min/1.7 3m2 [facility] Comment:Estimated glomerular filtration rate calculated using the CKD-EPI equation. ANION GAP 16 10 - 20 mmol/L [facility] Blood 11/19/2020 10:3 3 AM EDT 11/19/2020 10:40 AM EDT us Davian Salas MD LAB BLOOD BKR ORD ERABLES Final Result Performing Organization Address City/State/[facility] Co de Phone Number [address] [address] * Pap Smear (06/21/2020 12:00 AM EST) 06/21/2020 06/22/2020 8:2 0 AM EST Narrative SEE NARRATIVE - 06/24/2020 1:49 PM EST [address] [address] [place] Hospitalist: Destiney Sargent MD METAL TREATER Cytology Report FINAL DIAGNOSIS A. PAP SMEAR (SUREPATH) CE: SPECIMEN ADEQUACY: Satisfactory for evaluation; transformation zone present. INTERPRETATION: NEGATIVE FOR INTRAEPITHELIAL LESION OR MALIGNANCY. Coccobacilli consistent with shift in nathan Electronically Signed Out By: HUNTER Zambrano(ASCP) The Pap test is a screening test primarily for squamous cancers and precursors and has associated false-negative and false-positive results. New technologies such as liquid-based preparations may decrease but will not eliminate all false-negative results. Regular sampling and follow-up of unexplained clinical signs and symptoms are recommended to minimize false negative results. PROCEDURES/ADDENDA HPV Testing (Requested) Ordered Date: 06/22/2020 A. PAP SMEAR (SUREPATH) CE: Human Papilloma Virus Test Negative for high-risk human papillomavirus types 16, 18, 45 and the Other high risk probe set (Includes 31, 33, 35, 39, 51, 52, 56, 58, 59, 66, 68) by Phonetime Onclarity HR-HPV analysis. Clinical correlation is advised. This HPV test was performed at [facility], [address] [place] [address]. This test has been FDA approved for SurePath cervical cytology specimens. The accuracy and precision of this test for all other specimen sources has been verified in the Cytopathology Laboratory of the [facility] and has not been cleared or approved by the U.S. Food and Drug Administration. Clinical correlation is advised. CLINICAL HISTORY Date of Last Menstrual Period: Not Provided Menstrual History: Post Menopausal Other Clinical Conditions: Screening Pap SPECIMEN SOURCE A: PAP SMEAR (SUREPATH) CE Patient Name: KATRIN COE : 1965 (Age: 54) Sex: F Institution: [facility] Location: [facility] Date of Collection: 06/21/2020 Date of Reported: 06/23/2020 11:10 Results to: Jaky Patton MD Jaky Patton MD CYTOLOGY ORDERABLES Edited Result - Final SEE NARRATIVE * COLONOSCOPY FOR RESULT ENTRY ONLY (05/02/2017) Colonoscopy External Historical Provider HEALTH MAINTENANCE Final Result from Last 3 Months or Most Recently Relevant to Health Maintenance Insurance Member Subscriber Plan / Payer (Ef fective 2018-Present) Name:Katrin Coe Relation to Subscriber:Spouse Name:ALESHA DUMONT Date of :1975 (Home) Address: [address] [place] [id number] Payer ID:[id number] (NAIC) Type:HMO Address: [address] [place], [place] Care Teams Assembler Ping Pong Table Relationship Specialty Start Date End Date Cheo Ralph DO [address] [place] [address] PCP - General Internal Medicine 01/04/25 Additional Source Comments The information contained in this document represents components of the legal health record. It is not the complete legal health record.[facility]
--- OUTSIDE RECORDS SUMMARY | 2025-05-08 09:59 | XMS_ITS | Encounter Summary ---
Author Organization [facility] Address [address] [facility] [address] [place] [address] Phone Care Team Providers Care Fulfillment Associate Name Role Phone Cheo Ralph DO Unavailable Oneida Cagle CNM Unavailable Chuyita Thomas NP Unavailable Tarsha Benítez MD Unavailable [phone] Boaz Mcgowan MD Unavailable Matilda Garcia MD Unavailable [phone] Belinda Cheng MD Unavailable [phone] Rhonda Almanza MD Unavailable [phone] Cheo Ralph DO Primary Care Provider [phone] Cheo Ralph DO Unavailable Cheo Ralph DO Primary Care Provider [phone] Encounter Details Date Type Department Care Team (Late st Contact Info) Description 06/10/2018 Ancillary Orders Virtual Department [address] [place] [address] Cheo Ralph DO [address] [place] [address] Visit for screening mammogram Social History Tobacco Use Types Packs/Day Years Used Date Smoking Tobacco: Never Assessed Comments Unknown Sex and Gender Information Value Date Recorded Sex Assigned at Female 11/19/2020 9:58 AM EDT Legal Sex Female 9:39 PM EDT Gender Identity Female 11/19/2020 9:58 AM EDT Sexual Orientation Not on file documented as of this encounter Plan of Treatment Upcoming Encounters Date Type Department Care Team ([facility] st Contact Info) Description 06/30/2025 10:30 AM EST Office Visit [facility] [address] [place] [address] [address] [facility], [address] [place] [address] Evin Olivo MD [address] [place] [address] 08/20/2025 11:40 AM EST Office Visit [facility] [address], [address] [place] [address] Piter Young MD [address] [place] [address] documented as of this encounter Visit Diagnoses Diagnosis Visit for screening mammogram documented in this encounter Care Teams Fulfillment Associate Relationship Specialty Start Date End Date Cheo Ralph DO PCP - General 06/28/17 01/03/25 Cheo Ralph DO [address] [place] [address] PCP - General Internal Medicine 01/04/25 Cheo Ralph DO Historical LMR Provider 04/14/17 01/03/25 Oneida Cagle CNM [address] [place] [address] Historical LMR Provider 04/14/17 2 Chuyita Thomas NP [address] [place] [address] Historical LMR Provider 04/14/17 Tarsha Benítez MD [address] [facility], 2nd [place] [address] Historical LMR Provider 04/14/17 Boaz Mcgowan MD [address] [place] [address] Historical LMR Provider 04/14/17 07/02/21 Matilda Garcia MD [address] [address] Historical LMR Provider 04/14/17 2 Belinda Cheng MD [address] [place] [phone] Historical LMR Provider 04/14/17 2 Rhonda Almanza MD [address] [place] [phone] Historical LMR Provider 04/14/17 2 Cheo Ralph DO [address] [place] [address] [place] [address] Insurance Assigned Provider 09/29/23 01/03/25 documented as of this encounter Additional Source Comments The information contained in this document represents components of the legal health record. It is not the complete legal health record.[facility]
--- OUTSIDE RECORDS SUMMARY | 2025-05-08 09:59 | XMS_ITS | Encounter Summary ---
Author Organization [facility] Address [address] [facility] [address] [place] [address] Phone Care Team Providers Care Stand In Name Role Phone Loree, Cheo Isidro DO Unavailable Bigda, Cheo A DO Primary Care Provider [phone] Bigda, Cheo A DO Unavailable Bigda, Cheo A DO Primary Care Provider [phone] Encounter Details Date Type Department Care Team (Late st Contact Info) Description 01/15/2023 Procedure Pass [facility], [address] [id number] Social History Tobacco Use Types Packs/Day Years Used Date Smoking Tobacco: Some Days Cigarettes Smokeless Tobacco: Never Alcohol Use Standard Drinks/Week Comments Yes 1 [...] Description 06/30/2025 10:30 AM EST Office Visit [facility] [address] Floor, [address] [place] [address] Evin Olivo MD [address] [place] [address] 08/20/2025 11:40 AM EST Office Visit [facility] [address], [address] [place] [address] Piter Young MD [address] [place] [address] documented as of this encounter Visit Diagnoses Not on filedocumented in this encounter Care Teams Stand In Relationship Specialty Start Date End Date Cheo Ralph DO PCP - General 06/28/17 01/03/25 Cheo Ralph DO [address] [place] [address] PCP - General Internal Medicine 01/04/25 Cheo Ralph DO Historical LMR Provider 04/14/17 01/03/25 Cheo Ralph DO [address] [place] [address] Insurance Assigned Provider 09/29/23 01/03/25 documented as of this encounter Additional Source Comments The information contained in this document represents components of the legal health record. It is not the complete legal health record.[facility]
--- OUTSIDE RECORDS SUMMARY | 2025-05-08 09:59 | XMS_ITS | Encounter Summary ---
Author Organization [facility] Address [address] [facility] [address] [place] [address] Phone Care Team Providers Care Desolderer Name Role Phone Cheo Ralph DO Unavailable Oneida Cagle CNM Unavailable [phone] Chuyita Thomas NP Unavailable Tarsha Benítez MD Unavailable [phone] Boaz Mcgowan MD Unavailable Matilda Garcia MD Unavailable [phone] Belinda Cheng MD Unavailable [phone] Rhonda Almanza MD Unavailable [phone] Cheo Ralph DO Primary Care Provider [phone] Cheo Ralph Sanna DO Unavailable Cheo Ralph DO Primary Care Provider [phone] Encounter Details Date Type Department Care Team (Late st Contact Info) Description 11/19/2020 Procedure Pass [facility], Ct Scan - [address] [id number] Social History Tobacco Use Types Packs/Day Years Used Date Smoking Tobacco: Some Days Cigarettes Smokeless Tobacco: Never Alcohol Use Standard Drinks/Week Comments Yes 1 (1 standard drink = 0.6 oz pur e alcohol) Comments No Sex and Gender Information Value Date Recorded Sex Assigned at Female 11/19/2020 9:58 AM EDT Legal Sex Female 9:39 PM EDT Gender Identity Female 11/19/2020 9:58 AM EDT Sexual Orientation Not on file documented as of this encounter Functional Status * Calculated C-SSRS Risk Score (Lifetime/Recent) Answer Date of Assessment Author No Risk Indicated 11/19/2020 9:58 AM EDT Hanna Mauricio RN * [place] Suicide Severity Rating Scale (Screener/Recent Self-Report) Question Answer Date of Assessment Author 1. Wish to be (Past 1 Month) No 021 9:58 AM EDT Hanna Mauricio RN 2. Non-Specific Active Suici lanny Thoughts (Past 1 Month) No 11/19/2020 9:58 AM EDT Zoraida Mauricio RN 6. Suicidal Behavior (Lifetime) No 9:58 AM EDT Hanna Mauricio RN documented as of this encounter Plan of Treatment Upcoming Encounters Date Type Department Care Team (Late st Contact Info) Description 06/30/2025 10:30 AM EST Office Visit [facility] [address] [place] [address], [address] [address] Evin Olivo MD [address] [place] [address] 08/20/2025 11:40 AM EST Office Visit [facility] [address] [place] [address], [address] [place] [address] Piter Young MD [address] [place] [address], [address] [address] documented as of this encounter Visit Diagnoses Not on filedocumented in this encounter Care Teams Desolderer Relationship Specialty Start Date End Date Cheo Ralph DO PCP - General 06/28/17 01/03/25 Cheo Ralph DO [address] [place] [address] [place] [address] PCP - General Internal Medicine 01/04/25 Cheo Ralph DO [email or web address] Historical LMR Provider 04/14/17 01/03/25 Oneida Cagle CNM [address] [place] [address] Historical LMR Provider 04/14/17 2 Chuyita Thomas NP [address] [place] [address] Historical LMR Provider 04/14/17 Tarsha Benítez MD [address] [place] [address] [email or web address] Historical LMR Provider 04/14/17 Boaz Mcgowan MD [address] [place] [address] Historical LMR Provider 04/14/17 07/02/21 Matilda Garcia MD [address] [place] [address] Historical LMR Provider 04/14/17 2 Belinda Cheng MD [address] [place] [address] Historical LMR Provider 04/14/17 2 Rhonda Almanza MD [address] [place] [address] Historical LMR Provider 04/14/17 2 Cheo Ralph DO [address] [place] [address] [email or web address] Insurance Assigned Provider 09/29/23 01/03/25 documented as of this encounter Additional Source Comments The information contained in this document represents components of the legal health record. It is not the complete legal health record.[facility]
--- OUTSIDE RECORDS SUMMARY | 2025-05-08 09:59 | XMS_ITS | Encounter Summary ---
Author Organization [facility] Address [address] [facility] [address] [place] [address] Phone Care Team Providers Care Supervisor Stave Cutting Name Role Phone Cheo Ralph DO Unavailable Oneida Cagle CNM Unavailable Chuyita Thomas NP Unavailable Tarsha Benítez MD Unavailable [phone] Boaz Mcgowan MD Unavailable Matilda Garcia MD Unavailable [phone] Belinda Cheng MD Unavailable [phone] Rhonda Almanza MD Unavailable [phone] Cheo Ralph DO Primary Care Provider [phone] Cheo Ralph DO Unavailable Cheo Ralph DO Primary Care Provider [phone] Encounter Details Date Type Department Care Team (Late st Contact Info) Description 03/29/2020 Ancillary Orders Virtual Department [address] [place] [address] Cheo Ralph DO [address] [facility] [place] [address] Breast screening Social History Tobacco Use Types Packs/Day Years [...] Description 06/30/2025 10:30 AM EST Office Visit [facility] [address] 3rd Floor, [address] [place] [address] Evin Olivo MD [address] [place] [address], [address] [address] 08/20/2025 11:40 AM EST Office Visit [address] 3rd Floor, [address] [place] [address] Piter Young MD [address] [place] [address], [address] [place] [id number] [email or web address] documented as of this encounter Results * BI MAMMOGRAM SCREENING WITH TOMOSYNTHESIS WITH CAD (BILATERAL) (05/17/2020 3:29 PM EST) Anatomical Region Laterality Modality Breast Left, Breast Right, Breast Bilateral Bila teral Mammography 05/17/2020 4:32 PM EST Impressions 05/17/2020 4:36 PM EST No mammographic change indicative of malignancy. Annual screening is recommended. BI-RADS CATEGORY: 2 - Benign finding. DENSITY: There are scattered fibroglandular densities. Narrative 05/17/2020 4:36 PM EST Bilateral full-field digital screening mammography is obtained and read in conjunction with computer-aided detection. Tomosynthesis as well as 2-D C view imaging of both breasts in two planes also obtained. Comparison made to multiple prior, most recent March 25, 2013, and most remote 09/06/2005. Patient has had interval reduction mammoplasty since the most recent prior. No dominant mass, unexpected architectural distortion, worrisome asymmetry, or suspicious calcification is identified. No skin or nipple finding of concern is appreciated. Minor asymmetry in the inner right breast does not have suspicious features and is consistent with the reduction mammoplasty changes. Annual screening mammography recommended in follow-up. Procedure Note Randall Ragland MD - 05/17/2020 Bilateral full-field digital screening mammography is obtained and read inconjunction with computer-aided detection. Tomosynthesis as well as 2-D Cview imaging of both breasts in two planes also obtained. Comparison madeto multiple prior, most recent March 25, 2013, and most remote 09/06/2005.Patient has had interval reduction mammoplasty since the most recentprior. No dominant mass, unexpected architectural distortion, worrisomeasymmetry, or suspicious calcification is identified. No skin or nipplefinding of concern is appreciated. Minor asymmetry in the inner rightbreast does not have suspicious features and is consistent with thereduction mammoplasty changes. Annual screening mammography recommended infollow-up. IMPRESSION: No mammographic change indicative of malignancy. Annual screening isrecommended. BI-RADS CATEGORY: 2 - Benign finding. DENSITY: There are scattered fibroglandular densities. Cheo Ralph DO IM MG EXAMS Final Result documented in this encounter Visit Diagnoses Diagnosis Breast screening Breast screening, unspecified Breast screening Breast screening, unspecified documented in this encounter Care Teams Supervisor Stave Cutting Relationship Specialty Start Date End Date Cheo Ralph DO PCP - General 06/28/17 01/03/25 Cheo Ralph DO 179 [place] [address] PCP - General Internal Medicine 01/04/25 Cheo Ralph DO Historical LMR Provider 04/14/17 01/03/25 Oneida Cagle CNM [address] [place] [address] Historical LMR Provider 04/14/17 2 Chuyita Thomas NP 22 [place] [address] Historical LMR Provider 04/14/17 Tarsha Benítez MD 15 [facility], 2nd [place] [address] [email or web address] Historical LMR Provider 04/14/17 Boaz Mcgowan MD [address] [place] [address] [email or web address] Historical LMR Provider 04/14/17 07/02/21 Matilda Garcia MD [address], [place] [address] Historical LMR Provider 04/14/17 2 Belinda Cheng MD 61 [place] [address] Historical LMR Provider 04/14/17 2 Rhonda Almanza MD [address] [address] Historical LMR Provider 04/14/17 2 Cheo Ralph DO [address] [place] [address] [place] [address] [email or web address] Insurance Assigned Provider 09/29/23 01/03/25 documented as of this encounter Additional Source Comments The information contained in this document represents components of the legal health record. It is not the complete legal health record.[facility]
--- OUTSIDE RECORDS SUMMARY | 2025-05-08 10:00 | XMS_ITS | Encounter Summary ---
Author Organization [facility] Address [address] [place] [address] [place] [address] Phone Care Team Providers Care Brokerage Clerk Name Role Phone Cheo Ralph DO Unavailable Bigda, Cheo A DO Primary Care Provider [phone] Bigda, Cheo Sanna DO Unavailable Bigda, Cheo A DO Primary Care Provider [phone] Encounter Details Date Type Department Care Team (Late st Contact Info) Description 08/28/2022 Transcribe Orders Virtual Department [address] [place] [address] Cheo Rlaph Sanna, DO 179 [facility] [place] [address] [email or web address] Breast screening (Primary Dx) Social History Tobacco Use Types [...] Description 06/30/2025 10:30 AM EST Office Visit [facility] [address], [address] [place] [address] Evin Olivo MD [address] [facility], [address] [place] [address] 08/20/2025 11:40 AM EST Office Visit [facility] [address] Floor, [address] [place] [address] Piter Young MD [address] [facility], [address] [place] [address] documented as of this encounter Visit Diagnoses Diagnosis Breast screening- Primary Breast screening, unspecified documented in this encounter Care Teams Brokerage Clerk Relationship Specialty Start Date End Date Cheo Ralph DO PCP - General 06/28/17 01/03/25 Cheo Ralph DO 179 [place] [address] PCP - General Internal Medicine 01/04/25 Cheo Ralph DO Historical LMR Provider 04/14/17 01/03/25 Cheo Ralph DO 179 [place] [address] Insurance Assigned Provider 09/29/23 01/03/25 documented as of this encounter Additional Source Comments The information contained in this document represents components of the legal health record. It is not the complete legal health record.[facility]
--- OUTSIDE RECORDS SUMMARY | 2025-05-08 10:00 | XMS_ITS | Encounter Summary ---
Author Organization [facility] Address [address] [facility] [address] [place] [address] Phone Care Team Providers Care Industry Analyst Name Role Phone Cheo Ralph DO Unavailable Oneida Cagle CNM Unavailable [phone] Chuyita Thomas NP Unavailable Tarsha Benítez MD Unavailable [phone] Boaz Mcgowan MD Unavailable Matilda Garcia MD Unavailable [phone] Belinda Cheng MD Unavailable [phone] Rhonda Almanza MD Unavailable [phone] Cheo Ralph DO Primary Care Provider [phone] Cheo Ralph Sanna DO Unavailable Cheo Ralph DO Primary Care Provider [phone] Encounter Details Date Type Department Care Team (Late st Contact Info) Description 09/13/2020 Procedure Pass [facility] [address] [place] [address] Social History Tobacco Use Types Packs/Day Years [...] Upcoming Encounters Date Type Department Care Team ([facility] st Contact Info) Description 06/30/2025 10:30 AM EST Office Visit [facility] [address] [place] [address] 3rd [facility], [address] [place] [address] Evin Olivo MD [address] [place] [address] 08/20/2025 11:40 AM EST Office Visit [facility] [address] 3rd [facility], [address] [place] [address] Piter Young MD [address] [place] [address] documented as of this encounter Visit Diagnoses Not on filedocumented in this encounter Care Teams Industry Analyst Relationship Specialty Start Date End Date Cheo Ralph DO PCP - General 06/28/17 01/03/25 Cheo Ralph DO 179 [facility] [place] [address] [place] [address] PCP - General Internal Medicine 01/04/25 Cheo Ralph DO Historical LMR Provider 04/14/17 01/03/25 Oneida Cagle CNM 30 [place] [address] Historical LMR Provider 04/14/17 2 Chuyita Thomas NP 22 [place] [address] Historical LMR Provider 04/14/17 Tarsha Benítez MD 15 [facility], 2nd [place] [address] Historical LMR Provider 04/14/17 Boaz Mcgowan MD [address] [place] [address] Historical LMR Provider 04/14/17 07/02/21 Matilda Garcia MD [address] [place] [address] Historical LMR Provider 04/14/17 2 Belinda Cheng MD [address] [place] [phone] Historical LMR Provider 04/14/17 2 Rhonda Almanza MD [address] [place] [address] Historical LMR Provider 04/14/17 2 Cheo Ralph DO [address] [place] [address] [place] [address] [email or web address] Insurance Assigned Provider 09/29/23 01/03/25 documented as of this encounter Additional Source Comments The information contained in this document represents components of the legal health record. It is not the complete legal health record.[facility]
--- OUTSIDE RECORDS SUMMARY | 2025-05-08 10:00 | XMS_ITS | Encounter Summary ---
Author Organization [facility] Address [address] [facility] [address] [place] [address] Phone Care Team Providers Care Cage Fighter Name Role Phone Cheo Ralph DO Unavailable Oneida Cagle CNM Unavailable [phone] Chuyita Thomas NP Unavailable [phone] Tarsha Benítez MD Unavailable [phone] Boaz Mcgowan MD Unavailable Matilda Garcia MD Unavailable [phone] Belinda Cheng MD Unavailable [phone] Rhonda Almanza MD Unavailable [phone] Cheo Ralph DO Primary Care Provider [phone] Cheo Ralph Sanna DO Unavailable Cheo Ralph DO Primary Care Provider [phone] Encounter Details Date Type Department Care Team (Late st Contact Info) Description 11/19/2020 Procedure Pass [facility], Ct Scan - [address] [id number] Social History Tobacco Use Types Packs/Day Years [...] 9:58 AM EDT Hanna Mauricio RN * [place] Suicide Severity Rating Scale (Screener/Recent Self-Report) Question [...] Description 06/30/2025 10:30 AM EST Office Visit [facility] [address] [place] [address], [address] [address] Evin Olivo MD [address] [place] [address] 08/20/2025 11:40 AM EST Office Visit [facility] [address] [place] [address], [address] [place] [address] Piter Young MD [address] [place] [address], [address] [address] documented as of this encounter Visit Diagnoses Not on filedocumented in this encounter Care Teams Cage Fighter Relationship Specialty Start Date End Date Cheo Ralph DO PCP - General 06/28/17 01/03/25 Cheo Ralph DO [address] [place] [address] [place] [address] PCP - General Internal Medicine 01/04/25 Cheo Ralph DO [email or web address] Historical LMR Provider 04/14/17 01/03/25 Oneida Cagle CNM 30 [place] [address] Historical LMR Provider 04/14/17 2 Chuyita Thomas NP 22 [place] [address] Historical LMR Provider 04/14/17 Tarsha Benítez MD [address] [place] [address] [email or web address] Historical LMR Provider 04/14/17 Boaz Mcgowan MD [address] [place] [address] Historical LMR Provider 04/14/17 07/02/21 Matilda Garcia MD [address] [place] [address] Historical LMR Provider 04/14/17 2 Belinda Cheng MD 61 [place] [address] Historical LMR Provider 04/14/17 2 Rhonda Almanza MD [address] [place] [address] Historical LMR Provider 04/14/17 2 Cheo Ralph DO [address] [place] [address] [email or web address] Insurance Assigned Provider 09/29/23 01/03/25 documented as of this encounter Additional Source Comments The information contained in this document represents components of the legal health record. It is not the complete legal health record.[facility]
--- OUTSIDE RECORDS SUMMARY | 2025-05-08 10:00 | XMS_ITS | Encounter Summary ---
Author Organization [facility] Address [address] [facility] [address] [place] [address] Phone Care Team Providers Care Esl Teacher Name Role Phone Loree, Cheo Isidro DO Unavailable Bigda, Cheo A DO Primary Care Provider [phone] Bigda, Cheo A DO Unavailable Bigda, Cheo A DO Primary Care Provider [phone] Encounter Details Date Type Department Care Team (Late st Contact Info) Description 03/26/2024 Procedure Pass [facility] [address] [place] [address] Social History Tobacco Use Types Packs/Day Years [...] Description 06/30/2025 10:30 AM EST Office Visit [facility] [address] 3[address] Floor, [address] [place] [address] Evin Olivo MD [address] [place] [address], [address] [address] 08/20/2025 11:40 AM EST Office Visit [facility] [address] 3[address] Floor, [address] [place] [address] Piter Young MD [address] [place] [address], [address] [address] documented as of this encounter Visit Diagnoses Not on filedocumented in this encounter Care Teams Esl Teacher Relationship Specialty Start Date End Date Cheo Ralph DO PCP - General 06/28/17 01/03/25 Cheo Ralph DO 179 [place] [address] PCP - General Internal Medicine 01/04/25 Cheo Ralph DO Historical LMR Provider 04/14/17 01/03/25 Cheo Ralph DO 179 [place] [address] Insurance Assigned Provider 09/29/23 01/03/25 documented as of this encounter Additional Source Comments The information contained in this document represents components of the legal health record. It is not the complete legal health record.[facility]
--- OUTSIDE RECORDS SUMMARY | 2025-05-08 10:00 | XMS_ITS | Encounter Summary ---
Author Organization [facility] Address [address] [facility] [address] [place] [address] Phone Care Team Providers Care Search Consultant Name Role Phone Cheo Ralph DO Unavailable Oneida Cagle CNM Unavailable Chuyita Thomas NP Unavailable [phone] Tarsha Benítez MD Unavailable [phone] Boaz Mcgowan MD Unavailable Matilda Garcia MD Unavailable [phone] Belinda Cheng MD Unavailable [phone] Rhonda Almanza MD Unavailable [phone] Cheo Ralph DO Primary Care Provider [phone] Cheo Ralph DO Unavailable Cheo Ralph DO Primary Care Provider [phone] Reason for Referral * Outpatient Procedure - Closed Specialty Diagnoses / Procedures Referred By Cass t Referred To Contact Diagnoses Other chest pain Procedures Adult Echo TTE Cheo Ralph DO Phone: tel: fax: mailto: Referral ID Status Reason Start Date Expiration Date Visits Re quested Visits Authorized [id number] Closed 09/13/2020 09/13/2021 1 1 Encounter Details Date Type Department Care Team (Late st Contact Info) Description 09/13/2020 Transcribe Orders Virtual Department [address] [place] [address] Cheo Ralph DO 179 [facility] [place] [address] Other chest pain (Primary Dx) Social History Tobacco Use Types [...] Description 06/30/2025 10:30 AM EST Office Visit [facility] [address] [place] [address], [address] [place] [address] Evin Olivo MD [address] [place] [address] 08/20/2025 11:40 AM EST Office Visit [facility] [address] [place] [address] [place] [address], [address] [place] [address] Piter Young MD [address] [place] [address], [address] [address] documented as of this encounter Results * TTE COMPREHENSIVE (10/18/2020 11:52 AM EDT) Body Surface Area 1.9 m2 Height 170 cm Weight 80 kg Systolic BP 108 mmHg Diastolic BP 70 mmHg Left Atrium Dimension Anterior-Posterior 39 15 - 40 mm Aortic Valve Peak Velocity 170.0 cm/s Aortic Valve Peak Gradient 12 mmHg Aortic Valve Mean Gradient 6 mmHg Aortic Valve Time Velocity Integral 354 mm Aortic Sinus Diameter 33 mm Ascending Aorta Diameter 37 mm Inferior Vena Cava Diameter 20 0.0 - 21 mm Interventricular Septum Thickness 11 mm Left Ventricle Internal Diameter End Diastole 50 37 - 52 mm Left Ventricle Internal Diameter End Systole 37 22 - 35 mm Left Ventricular Outflow Tract Diameter 17.0 mm LVOT VTI REST 261 mm Left Ventricular Outflow Tract Velocity 1.4 m/s Left Ventricular Outflow Tract Gradient at Rest 8 mmHg Left Ventricular Posterior Wall Thickness 10 mm Mitral Valve A Wave Speed 82.3 cm/s Mitral Valve E Wave Speed 108.0 cm/s Right Ventricle Basal Diameter 28.4 25 - 41 mm Tricuspid Valve Peak Velocity 2.5 m/s Raw LV EF% 45 % Left Atrial Volume 45 mL Left Atrial Volume Index 23.68 mL/m2 Right Ventricle Peak Systolic Pressure 27 mmHg Right Atrium Pressure Estimated 2 mmHg Right Ventricle to Right Atrium Pressure Gradient 25 mmHg Right Ventricle Pulse Doppler S Wave 14.0 cm/s Aortic Valve Sinus Index 1 17 19 - 27 mm Ascending Aorta Diameter 19 mm Aortic Sinus Index 17 mm Ascending Aorta Index 19 mm Anatomical Region Laterality Modality Heart Ultrasound Narrative 10/19/2020 7:17 AM EDT This patient was imaged during normal sinus rhythm. Left ventricular ejection fraction is totally normal at 65% with no regional wall motion abnormalities. Diastolic function is normal. There is at least mild and perhaps mild to moderate aortic regurgitation there is mild mitral regurgitation and the PA pressure is normal compared to a prior echocardiogram done in 2015 the degree of aortic insufficiency has increased in the size of the a sending aortic root is the same. Left Ventricle The left ventricular cavity size and wall thickness are normal. Left ventricular systolic function is at the lower end of the normal range. There are no segmental left ventricular wall motion abnormalities noted. Left ventricular diastolic function appears within normal limits for age. Right Ventricle The right ventricular size is normal. The right ventricular systolic function is normal. Left Atrium The left atrium is normal in size. The LA volume is 45 mL. The LA volume index is 23.68 mL/m2 (normal indexed value is 16-34 mL/m2). The pulmonary venous flow profiles are normal. Right Atrium The right atrium is normal in size. The IVC measures 20 mm (normal <=21 mm). The IVC demonstrates normal collapse with inspiration which is consistent with normal RA pressure. Mitral Valve E/A ratio is 1.3. E/E' avg is 11.8. Lat E' velocity is 10.3cm/s. Med E' velocity is 7.94cm/s. There is no evidence of mitral stenosis. There is mild diffuse thickening of the anterior mitral valve leaflet. There is no evidence of mitral valve prolapse. There is mild mitral regurgitation detected by spectral and color Doppler. Tricuspid Valve The tricuspid valve appears normal. There is no evidence of tricuspid stenosis. There is evidence of mild tricuspid regurgitation by color and spectral Doppler. Normal pulmonary pressure. The RV systolic pressure was estimated from the peak TV regurgitant velocity. The estimated RV systolic pressure is 27 mmHg assuming a right atrial pressure of 2 mmHg. The calculated peak RV-RA pressure gradient is 25 mmHg. Aortic Valve The aortic valve is tricuspid. There is mild thickening of multiple aortic leaflets. There is no evidence of valvular aortic stenosis. The peak aortic valve gradient is 12 mmHg. The mean aortic gradient is 6 mmHg. There is evidence of mild to moderate aortic regurgitation by color and spectral Doppler. The visualized portions of the thoracic aorta appear normal. Pulmonic Valve The pulmonary valve appears normal. There is no evidence of pulmonic stenosis. There is evidence of trace pulmonary regurgitation by color and spectral Doppler. Pericardium There is no evidence of pericardial effusion. Interatrial Septum The interatrial septum appears normal. General Findings The image quality was good (2). Technique(s) used in the evaluation: Color flow Doppler and Spectral Doppler. The predominant rhythm during the study was sinus. Comparison Findings Compared to a prior TTE from 08/25/2014 Cheo Ralph DO CV ECHO ORDERABLES Final Result documented in this encounter Visit Diagnoses Diagnosis Other chest pain- Primary Other chest pain documented in this encounter Care Teams Search Consultant Relationship Specialty Start Date End Date Cheo Ralph DO .[employer] PCP - General 06/28/17 01/03/25 Cheo Ralph DO [address] [place] [address] PCP - General Internal Medicine 01/04/25 Cheo Ralph DO [email or web address] Historical LMR Provider 04/14/17 01/03/25 Oneida Cagle CNM 30 [place] [address] Historical LMR Provider 04/14/17 2 Chuyita Thomas, MICHELLE 22 [place] [address] Historical LMR Provider 04/14/17 Tarsha Benítez MD [address] [address] [email or web address] Historical LMR Provider 04/14/17 Boaz Mcgowan MD [address] [place] [address] [email or web address] Historical LMR Provider 04/14/17 07/02/21 Matilda Garcia MD [address], [place] [address] Historical LMR Provider 04/14/17 2 Belinda Cheng MD [address] [place] [phone] Historical LMR Provider 04/14/17 2 Rhonda Almanza MD [address] [place] [phone] Historical LMR Provider 04/14/17 2 Cheo Ralph DO [address] [place] [address] [email or web address] Insurance Assigned Provider 09/29/23 01/03/25 documented as of this encounter Additional Source Comments The information contained in this document represents components of the legal health record. It is not the complete legal health record.[facility]
--- OUTSIDE RECORDS SUMMARY | 2025-05-08 10:00 | XMS_ITS | Encounter Summary ---
Author Organization [facility] Address [address] [facility] [address] [place] [address] Phone Care Team Providers Care Glass Polisher Name Role Phone Cheo Ralph DO Unavailable Cheo Ralph DO Primary Care Provider [phone] Cheo Ralph DO Unavailable Cheo Ralph DO Primary Care Provider [phone] Reason for Referral * Outpatient Procedure - Closed Specialty Diagnoses / Procedures Referred By Cass kraft Referred To Contact Radiology Diagnoses Nonrheumatic aortic (valve) insufficiency Procedures Adult Echo TTE Cheo Ralph DO Phone: tel: fax: [email or web address] Referral ID Status Reason Start Date Expiration Date Visits Re quested Visits Authorized [id number] Closed 03/26/2024 03/26/2025 1 1 Encounter Details Date Type Department Care Team (Late st Contact Info) Description 03/26/2024 Transcribe Orders Virtual Department [address] [place] [address] Cheo Ralph DO [address] [facility] [place], [place] [id number] [email or web address] Nonrheumatic aortic (valve) insufficiency (Primary Dx) Social History Tobacco Use Types [...] Description 06/30/2025 10:30 AM EST Office Visit [facility] [address] [facility], [address] [place] [address] Evin Olivo MD [address] [place] [address], [address] [address] [email or web address] 08/20/2025 11:40 AM EST Office Visit [facility] [address] [facility], [address] [place] [address] Piter Young MD [address] [place] [address], [address] [address] documented as of this encounter Results * TTE COMPREHENSIVE (04/10/2024 11:44 AM EDT) Body Surface Area 1.90 m2 Height 170 cm Weight 79 kg Systolic BP 132 mmHg Diastolic BP 80 mmHg Left Atrium Dimension Anterior-Posterior 37 15 - 40 mm Aortic Valve Peak Velocity 169.0 cm/s Aortic Valve Peak Gradient 11 mmHg Aortic Valve Mean Gradient 6 mmHg Aortic Valve Mean Gradient 6 mmHg Aortic Valve Time Velocity Integral 377.0 mm Aortic Sinus Diameter 33 <40 mm Ascending Aorta Diameter 42 <36 mm Interventricular Septum Thickness 13 6 - 11 mm Left Ventricle Internal Diameter End Diastole 40 37 - 52 mm Left Ventricle Internal Diameter End Systole 25 <35 mm Left Ventricular Outflow Tract Diameter 21.0 mm LVOT VTI REST 290.0 mm Left Ventricular Outflow Tract Velocity 1.4 m/s Left Ventricular Outflow Tract Gradient at Rest 8 mmHg Left Ventricular Posterior Wall Thickness 11 6 - 11 mm Ejection Fraction 70 50 - 75 Percent Mitral Valve A Wave Speed 98.1 cm/s Mitral Valve E Wave Speed 84.0 cm/s Right Ventricle Basal Diameter 19 25 - 41 mm Tricuspid Valve Peak Velocity 2.4 m/s Raw LV EF% 61 % Relative Wall Thickness 0.55 0.22 - 0.42 Aortic Valve Prosthetic Peak Gradient 11 mmHg Aortic Valve Sinus Index by BSA 17 mm/m2 Aorta Sinus Index by Height 1.94 cm/m Aorta Sinus CSA index by Height 5.03 cm2/m Ascending Aorta Index 22 mm/m2 Asc Aorta CSA Index by Height 8.15 cm2/m Right Ventricle to Right Atrium Pressure Gradient 23 mmHg Right Ventricle Peak Systolic Pressure (Assuming RAP 10) 33 mmHg MGB CV ECHO TV RVSP (ASSUMING RAP OF 5) 28 mmHg RVSP (Exclusive of RAP) 23 mmHg Ascending Aorta Index 22 mm Aortic Sinus Index 17 mm Ascending Aorta Diameter 22 mm Aortic Valve Sinus Index 1 17 19 - 27 mm AO ASC DIAM BSA INDEX 22.11 Left Atrial Volume Index 23 16 - 34 mL/m2 Right Ventricle Peak Systolic Pressure 26 mmHg Left Ventricle Ea Lateral Wave Speed 13.0 cm/s Right Ventricle TAPSE 26 >=17 mm MV E/E' Tissue Velocity Lateral 6.46 Right Ventricle Pulse Doppler S Wave 11.0 >=9.5 cm/s Left Ventricle E Wave Speed 84.0 cm/s Left Ventricle A Wave Speed 98.0 cm/s MV E/A ratio 0.9 Left Ventricle Ea Septal Wave Speed 6.0 cm/s MV E/e' septal 14.00 Left Ventricle E/e' Average 10.2 Left Atrial Volume 44 mL Left Atrial Volume Index by Height 26 mL/m Right Atrium Pressure Estimated 3 mmHg Echo E/Ea 14.00 Anatomical Region Laterality Modality Heart Ultrasound Narrative 04/10/2024 1:34 PM EDT Mild LVH with normal LV systolic function EF 65 to 70%. 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 Normal RV size and function. Normal diastolic function. Mild aortic insufficiency. Compared to prior study from 2020, probably no change. Left Ventricle The left ventricle is normal in size. There is concentric hypertrophy. There is normal left ventricular systolic function. The LV ejection fraction is 70%. There are no wall motion abnormalities. LV diastolic function appears within normal limits for age. The E/A ratio is 0.9. The e' septal wave velocity is 6.0 cm/s. The e' lateral wave velocity is 13.0 cm/s. The average E/e' ratio is 10.2. Right Ventricle The right ventricle is normal in size. There is normal right ventricular systolic function. TAPSE is 26 mm. RV S' wave is 11.0 cm/s. Left Atrium The left atrium is normal in size. The left atrial anterior-posterior dimension is 37 mm. The left atrial volume index by BSA is 23 mL/m2. Right Atrium The right atrium is normal in size. The IVC is normal in size with normal inspiratory collapse. Mitral Valve There is mild mitral valve thickening. There is no mitral stenosis. There is trace to mild mitral regurgitation. Tricuspid Valve The tricuspid valve appears normal. There is no tricuspid stenosis. There is trace tricuspid regurgitation. The RV systolic pressure was calculated at 26 mmHg (using TR peak velocity of 2.4 m/s and assuming an RA pressure of 3 mmHg). Aortic Valve The aortic valve is tricuspid. There is mild leaflet thickening. The peak and mean aortic valve gradients are 11 mmHg and respectively. There is mild aortic regurgitation. The ascending aorta is dilated. The ascending aortic diameter is 42 mm. Pulmonic Valve The pulmonic valve appears normal. There is no pulmonic stenosis. There is trace pulmonic regurgitation. Pericardium The pericardium appears normal. General Findings The image quality was good (2). Technique(s) used in the evaluation: Color flow Doppler and Spectral Doppler. The predominant rhythm during the study was sinus. Comparison Findings Compared to prior TTE on 10/18/2020, IAS/IVS There is no evidence of patent foramen ovale (PFO). us Cheo A Bigda DO CV ECHO ORDERABLES Final Result documented in this encounter Visit Diagnoses Diagnosis Nonrheumatic aortic (valve) insufficiency- Primary Nonrheumatic aortic (valve) insufficiency documented in this encounter Care Teams Glass Polisher Relationship Specialty Start Date End Date Cheo Ralph DO PCP - General 06/28/17 01/03/25 Cheo Ralph DO [address] [place] [address] PCP - General Internal Medicine 01/04/25 Cheo Ralph DO Historical LMR Provider 04/14/17 01/03/25 Cheo Ralph DO [address] [place] [address] Insurance Assigned Provider 09/29/23 01/03/25 documented as of this encounter Additional Source Comments The information contained in this document represents components of the legal health record. It is not the complete legal health record.[facility]
--- OUTSIDE RECORDS SUMMARY | 2025-05-08 10:00 | XMS_ITS | Encounter Summary ---
Author Organization [facility] Address [address] [facility] [address] [place] [address] Phone Care Team Providers Care Market Research Assistant Name Role Phone Cheo Ralph DO Unavailable Oneida Cagle CNM Unavailable [phone] Chuyita Thomas NP Unavailable Tarsha Benítez MD Unavailable [phone] Boaz Mcgowan MD Unavailable Matilda Garcia MD Unavailable [phone] Belinda Cheng MD Unavailable [phone] Rhonda Almanza MD Unavailable [phone] Cheo Ralph DO Primary Care Provider [phone] Cheo Ralph Sanna DO Unavailable Cheo Ralph DO Primary Care Provider [phone] Encounter Details Date Type Department Care Team (Late st Contact Info) Description 11/19/2020 Procedure Pass [facility], Ct Scan - [address] [phone] Social History Tobacco Use Types Packs/Day Years [...] 9:58 AM EDT Hanna Mauricio RN * [place] Suicide Severity Rating Scale (Screener/Recent Self-Report) Question [...] Description 06/30/2025 10:30 AM EST Office Visit [facility] [address] [place] [address], [address] [address] Evin Olivo MD [address] [place] [address] 08/20/2025 11:40 AM EST Office Visit [facility] [address] [place] [address], [address] [place] [address] Piter Young MD [address] [place] [address], [address] [address] documented as of this encounter Visit Diagnoses Not on filedocumented in this encounter Care Teams Market Research Assistant Relationship Specialty Start Date End Date Cheo Ralph DO PCP - General 06/28/17 01/03/25 Cheo Ralph DO [address] [place] [address] [place] [address] PCP - General Internal Medicine 01/04/25 Cheo Ralph DO [email or web address] Historical LMR Provider 04/14/17 01/03/25 Oneida Cagle CNM [address] [place] [address] Historical LMR Provider 04/14/17 2 Chuyita Thomas NP [address] [place] [address] Historical LMR Provider 04/14/17 Tarsha Benítez MD [address] [place] [address] [email or web address] Historical LMR Provider 04/14/17 Boaz Mcgowan MD [address] [place] [address] Historical LMR Provider 04/14/17 07/02/21 Matilda Garcia MD [address] [place] [address] Historical LMR Provider 04/14/17 2 Belinda Cheng MD [address] [place] [address] Historical LMR Provider 04/14/17 2 Rhonda Almanza MD [address] [place] [address] Historical LMR Provider 04/14/17 2 Cheo Ralph DO [address] [place] [address] [email or web address] Insurance Assigned Provider 09/29/23 01/03/25 documented as of this encounter Additional Source Comments The information contained in this document represents components of the legal health record. It is not the complete legal health record.[facility]
[2025-05-08 14:32] LABS: Alanine Aminotransferase 115 U/L (0-31); Albumin Level 4.8 g/dL (3.5-5.0); Alkaline Phosphatase 65 U/L (39-117); Anion Gap 11 (12-20); Aspartate Amino Transferase 85 U/L (5-31); Blood Urea Nitrogen 10 mg/dL (9-16); Calcium 9.5 mg/dL (8.4-10.2); Carbon Dioxide 27 mmol/L (22-29); Chloride 105 mmol/L (96-108); Cholesterol 113 mg/dL (<200); Estimated Glomerular Filt Rate > 60; HDL Cholesterol 81 mg/dL (>40); Potassium 4.2 mmol/L (3.3-5.1); Sodium 139 mmol/L (135-145); Total Protein 7.0 g/dL (6.5-8.0); Triglycerides 32 mg/dL (<150)
== END 2025-05-08 09:16 | disposition home or self-care (01) ==
LOC: HO.MANLDS 09:15
PROVIDERS: Visit Provider Internal Medicine
DX: E11.9 Type 2 diabetes mellitus without complications (principal); Z79.4 Long term (current) use of insulin
CPT/HCPCS: 36415; 80053; 80061; 83036

== ENCOUNTER 2025-05-11 11:35 | Outpatient (REF) | payer BC, SELFPAY ==
[2025-05-11 13:09] LABS: MANUAL DIFF FLAG NO
[2025-05-11 13:43] LABS: Hematocrit 41.5 % (37.0-47.0); Hemoglobin 14.2 g/dl (12.0-16.0); Imm Gran Abs Auto 0.01 X10*3/uL (0.00-0.03); Imm Gran Pct Auto 0.2 % (0.0-0.4); Lymphocytes Absolute Auto 1.3 X10*3/uL (1.2-4.9); Mean Corpuscular HGB Conc 34.2 g/dl (31.0-35.0); Mean Corpuscular Hemoglobin 32.1 pg (27.0-33.0); Mean Corpuscular Volume 93.7 fL (80.0-98.0); NRBC Abs Auto 0.000 X10*3/uL (0.0-0.012); NRBC Pct Auto 0.0 /100WBC (0.0-0.2); Platelet Count 215 X10*3/uL (160-400); Red Blood Count 4.43 X10*6/uL (4.20-5.50); White Blood Count 4.7 X10*3/uL (4.8-10.8)
[2025-05-11 13:46] LABS: Alanine Aminotransferase 97 U/L (0-31); Albumin Level 5.1 g/dL (3.5-5.0); Alkaline Phosphatase 65 U/L (39-117); Anion Gap 13 (12-20); Aspartate Amino Transferase 56 U/L (5-31); Blood Urea Nitrogen 10 mg/dL (9-16); Calcium 9.8 mg/dL (8.4-10.2); Carbon Dioxide 28 mmol/L (22-29); Chloride 104 mmol/L (96-108); Estimated Glomerular Filt Rate > 60; Potassium 4.5 mmol/L (3.3-5.1); Sodium 140 mmol/L (135-145); Total Protein 7.3 g/dL (6.5-8.0)
--- OUTSIDE RECORDS SUMMARY | 2025-05-11 23:58 | XMS_ITS | Continuity of Care Document ---
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) MDM MODERATE MUST MEET 2 OUT OF [...] EACH ELEMENT THAT IS COVERED Not available 05/11/2025 11:28:28 Plan of Treatment Reminders Order Date Submit Date Provider Last Modified By Organization Details Last Modified Time Details Appointments FOLLOW UP 15 2024 11:00A M DR HENDRICKSON Not available Not available Not available FOLLOW UP 15 2024 12:00P M DR HENDRICKSON Not available Not available Not available Lab CMP, serum or plasma 2024 025 [facility], [address] [place] [address], [address], 05/11/2025 11:29:38 CBC 2024 025 [facility], [address] [place], [place] [address], [place], [address], 05/11/2025 11:29:38 hemoglobi n A1c, QN, blood 2024 [facility], [address] [place] [address], [place], [address], 05/11/2025 11:29:38 Referral None recorded. Procedures None recorded. Surgeries None recorded. Imaging US, liver 2024 [email or web address] [facility] Central Scheduling (Not Breast), [address] [place] [address], [address], 05/11/2025 13:01:50 US, echocardi ogram, transthor acic, complete, w/ color flow 2024 [email or web address] [facility] (Cardiology), [address] [place], [address], 05/11/2025 13:01:51 Medication Orders metoprolo l succinate ER 50 mg tablet,ex tended release 24 hr 2024 [id number], [address] [place] [address], [id number], 05/11/2025 11:28:29 Patient TargetsNo targets recorded. Patient InstructionsNo instructions recorded. Reason for Referral None Reported. Results Created Date Observation Date Name Description Value Unit Range Abnormal Flag Note LastModifiedBy Organization Detail LastModifiedTime Result Notes None recorded. Problems Name Problem SNOMED Code Status Onset Date Resolution Date Notes Provider Name and Address Organization Details Recorded Time Obstruct lazarus sleep apnea syndrome 05947210 Active 2017 Not Available [facility] 10:52:05 Prediabe virgen 302435524 Completed 201711/12/2017 Cheo Hendrickson DO [address] [place], [address], [place] [facility] 8 11:14:51 Hyperten sive disorder 37021788 Active 2017 Not Available [facility] 1 10:52:05 Migraine 52108049 Active 2017 Not Available [facility] 1 10:52:05 History of reductio n of breast 121834432 Active 2017 b/l Not Available [facility] 1 10:52:05 History of obesity 393525996 Active 2017 Not Available [facility] 1 10:52:05 Diabetes mellitus 56081211 Active 2017 Not Available [facility] 1 10:52:05 Hypercho lesterol emia 37814452 Active 2019 Not Available [facility] 1 10:52:05 COVID-19 949089842 Active 2020March 2021 [facility] 1 10:19:08 Concussi on injury of brain 884790652 Active 2021 Cheo Hendrickson, [address] [place] [address], [address], [facility] 2 11:44:23 Tobacco dependen ce syndrome 39578440 Active 2021 Cheo Hendrickson DO [address] [place] [address], [address], [facility] 2 11:44:23 Aortic valve regurgit ation 29918516 Active 2022 Cheo Hendrickson DO [address] [place] [address], [address], [facility] 3 14:45:15 Mitral valve regurgit ation 98896062 Active 2022 Cheo Hendrickson DO [address] [place] [address], [address], [facility] 3 14:45:28 Liver enzymes level above referenc e range 880240648 Active 2022 Cheo Hendrickson DO [address] [place] [address], [address], [facility] 3 14:46:58 Viral upper respirat ory tract infectio n 106139817 Active 2022 Cheo SannaJuan Hendrickson, [address] [place], [address], [facility] 3 12:33:05 Atypical pneumoni a 617537925 Active 2022 Cheo SannaJuan Hendrickson DO [address] [place] [address], [address], [facility] 3 14:54:16 Type 2 diabetes mellitus 74309091 Active 2024 Cheo Sherry DO Loree [address] [place] [address], [address], [facility] 5 11:02:30 Liver enzymes outside referenc e range 966436389 Active 2024 Cheo Hendrickson DO [address] [place] [address], [address], [facility] 5 11:27:25 Problem Notes None recorded. Procedures Surgical History Date Name Laterality Status Provider Name and Address Organization Details Recorded Time 7 Colonoscopy completed Chuyita Dumont [facility] 06/10/2018 16:31:33 Imaging Results None recorded. Procedure Notes None recorded. Medical Equipment None [...] completed Not Available Not Available Not Available metoprolol succinate ER 50 mg tablet,exte nded release 24 hr Take 1 tablet every day by oral route for 30 days. 2024 active Not Available Not Available Not Avai lable hydrocodone 5 mg-acetamin ophen 325 mg tablet [...] 1.5 mg/0.5 mL subcutaneou s pen injector 2024 active Not Available Not Available Not [...] in Arterial blood by Pulse oximetry Systolic And Diastolic Provider Name and Address Organization Details Last Updated DateTime 5 171.45 cm 25.2 kg/m2 11803.5 6 g 62 /min 98 % 98 % 172/90 mm[Hg] Claritza Perera [facility] 5 11:02:15 Social History Question Answer Notes LastModified by Organizat ion Details LastModified Time Tobacco Smoking Status Former Smoker Claritza gonzales [place] Tre[place] [facility] 01/24/2023 09:08:35 What Was The Date Of Your Most Recent Tobacco Screening? 05/11/2025 [email or web address] Information not available 05/11/2025 How Much Tobacco Do You Smoke? No [email or web address] Information not available 01/24/2023 Sex: Unknown Functional Status Question Answer Note LastModified by Organization D etails LastModified Time Do you or have you ever used any other forms of tobacco or nicotine? No [email or web address] Information not available 01/24/2023 Mental Status None recorded. Family History Nothing Reported. Medical History Condition Response Coronary Artery Disease N Other N Gout N Kidney Stones N Blood Diseases N Breast Cancer N Blood Transfusion N COPD N Depression N Lung Disease N Defects or Inherited Disease N Anxiety Disorder N Muscle, Joint, or Bone Problems N Obesity N Vision or Eye Problems N Arthritis N Polyps N Infertility N Mental Disorder N Cancer N Varicosities N Stroke N Endometriosis N Bladder or Kidney Problems N High Cholesterol N Liver Disease N Headaches N Fibromyalgia N Kidney Disease N Allergies/Hayfever N Heart Problems N Hospitalizations N Thyroid Problems N GI Problems N Skin Problems N Eating Disorder N Anemia N MRSA exposure N Constipation N Mental Illness N Ovarian Cancer N Diabetes N Seizures/Epilepsy N Tuberculosis N Congestive Heart Failure (CHF) N Eczema N Diverticulitis N Abuse/Domestic Violence N Asthma N Reflux/GERD N Hepatitis N Heart Disease N Pulmonary Embolism N Hypertension N Osteoporosis N Chicken Pox N Autism Spectrum Disorder (ASD) N Gynecological HistoryNo gynecological history recorded. Obstetrics History GPAL:G 0 P 0 0 0 0 Immunizations Vaccine Type Date Status Note Provider Nam e and Address Organization Details Recorded Time Influenza, split virus, quadrivalent, preservative 11/22/202 1 completed Yolanda Gencarelle null, [facility] 01/24/2023 08:53:02 COVID-19, mRNA, LNP-S, PF, 100 mcg/0.5mL dose or 50 mcg/0.25mL dose 1 completed Yolanda Gencarelle null, [facility] 01/24/2023 08:53:02 influenza, unspecified formulation 2 completed Yolanda Gencarelle null, [facility] 01/24/2023 08:53:02 influenza, unspecified formulation 3 completed Blayne Hendrickson null, [facility] 08/24/2023 16:11:48 Influenza, split virus, quadrivalent, preservative 9 completed Yolanda Gencarelle null, [facility] 01/24/2023 08:53:02 Influenza, split virus, quadrivalent, preservative 0 completed Yolanda Gencarelle null, [facility] 01/24/2023 08:53:02 pneumococcal polysaccharide PPV23 0 completed Yolanda Gencarelle null, [facility] 01/24/2023 08:53:02 zoster recombinant 0 completed Yolanda Gencarelle null, [facility] 01/24/2023 08:53:02 zoster recombinant 1 completed Yolanda Gencarelle null, [facility] 01/24/2023 08:53:02 Tdap 1 completed Betty Figueroa null, [facility] 07/13/2020 10:57:02 COVID-19, mRNA, LNP-S, PF, 100 mcg/0.5mL dose or 50 mcg/0.25mL dose 1 completed Yolanda Gencarelle null, [facility] 01/24/2023 08:53:02 Influenza, split virus, quadrivalent, preservative 8 completed Yolanda Gencarelle null, [facility] 01/24/2023 08:53:02 COVID-19, mRNA, LNP-S, PF, 100 mcg/0.5mL dose or 50 mcg/0.25mL dose 1 completed Yolanda gonzales EARLINE Trever [facility] 01/24/2023 08:53:02 Past Encounters Encounter ID Performer Location Encounter Start Date Encounter Closed Date Diagnosis/Indication Diagnosis SNOMED-CT Code Diagnosis ICD10 Code Diagnosis IMO Codes Diagnosis Note [id number] Cheo Hendrickson DO [facility] [address],[place] [address] 05/11/2025 10:56:49 05/11/2025 13:01:50 Depression screening 891003649 Z13.31 SCREENING NEGATIVE Hypertensive disorder 38 093607 I10 bp is up Type 2 alexa betes mellitus 91740666 E11.9 36299302 a1c is 6.7 stable and doing ok Aortic cha ve regurgitation 13570732 I35.1 Liver enzy mes outside reference range 516993467 R74.8 356598 Health Concerns Section Related Observation LastModified by Organization Detai ls LastModified Time None Recorded Concern Status LastModified by Organization Details LastModified Time None Recorded Payers Encounter Date Sequence Insurance Name Policy Number Policy Garcia Covered Member ID Garcia Member ID Guarantor Name 05/11/2025 1 [facility] [place] [place] [id number] Katrin Cutler [id number] Katrin Cutler Notes Date Note Type Note Provider Name and Address Organization Details Recorded Time 5 text/htm l Care Management - HypertensionReported by Patientbp has been very high lately Care Management - DiabetesReported by PatientHPIFor self care, patient reportsseeing eye doctor yearly for dilated eye exam,checking feet regularly,normal range of home blood sugars (in the low 100s), andno side effects from medications. For associated symptoms, patient reportssymptoms are usually well controlled,no fatigue,no dizziness,no excessive sweating,no headaches,no confusion,no increased thirst,no increased appetite,no increased urination,no blurred vision,no numbness of feet, andno calluses on feet.ROS as noted in the HPI here for rechkrelates that she had a very high bp over the past few weekssystolic over 200 and diastol over 100she did feel an off feeling in her back and upper chest Cheo Hendrickson, DO [address] [facility], [place], [address], [facility] 05/11/2025 11:31:06 OBGyn Episode No OBEpisode recorded.
--- OUTSIDE RECORDS SUMMARY | 2025-05-11 23:58 | XMS_ITS | Data Portability ---
Author Organization [facility], Telehealth Patient Home Address [address] [place] [address] Assessment Encounter Date Assessment Date Assessment LastModified by Organization Details LastModified Time 12/17/2023 12/17/2023 [id number] [place] [id number] (CHIEF ARCHITECT) [facility] MODERATE MUST MEET 2 OUT OF 3 [...] COVERED Not available 12/17/2023 10:17:58 07/21/2024 07/21/2024 [address] [place] [address] (CHIEF ARCHITECT) [facility] MODERATE MUST MEET 2 OUT OF 3 [...] THAT IS COVERED Not available 07/21/2024 10:55:26 11/10/2024 11/10/2024 [id number] [place] [address] (CHIEF ARCHITECT) [facility] MODERATE MUST MEET 2 OUT OF [...] EACH ELEMENT THAT IS COVERED Not available 11/10/2024 11:01:03 05/11/2025 05/11/2025 [address] [place] [address] (CHIEF ARCHITECT) M[facility] MODERATE MUST MEET 2 OUT OF [...] Lab CMP, serum or plasma 2024 025 [facility], [address] [place] [address], [place], [address], 05/11/2025 11:29:38 CBC 2024 025 [facility], [address] [place] [address], [place], [address], 05/11/2025 11:29:38 hemoglobi n A1c, QN, blood 2024 025 [facility], [address] [place] [address], [address], 05/11/2025 11:29:38 HbA1c (hemoglob in A1c), blood 2024 025 [facility], [address] [place] [address], [address], 11/06/2024 12:56:19 HbA1c (hemoglob in A1c), blood 2024 025 [facility], [address] [place] [address], [address], 11/06/2024 12:56:19 Referral sleep medicine referral - needs update and new rx following eval 2024 025 elizabeth Rodas MD, [address] , [place], [address], 12/17/2024 08:21:29 Procedures None recorded. Surgeries None recorded. Imaging US, liver [address] - Outpatient Imaging Central Scheduling (Not Breast), [address] [place] [address], [address], 05/11/2025 13:01:50 US, echocardi ogram, transthor acic, complete, w/ color flow [address] (Cardiology), [address] [place] [address], [address], 05/11/2025 13:01:51 US, echocardi ogram, transthor acic, complete, w/ color flow 2023 024 [facility] Not available 03/26/2024 09:22:07 Medication Orders metoprolo l succinate ER 50 mg tablet,ex tended release 24 hr 2024 025 [id number], [address] [place], [place], [id number], 05/11/2025 11:28:29 Trulicity 1.5 mg/0.5 mL subcutane ous pen injector 2023 024 [facility] Not available 12/17/2023 10:21:48 Patient TargetsNo targets recorded. Patient Instructions Encounter Date Encounter Id Patient Instructions Last Modified By Organization Details Last Modified Time 03/25/2024 [id number] deciding about using medicines to quit smoking Not available 03/25/2024 13:54:47 Quitting Tobacco : Care Instructions Not available 03/25/2024 13:54:47 aortic valve regurgitation: care instructions Not available 03/25/2024 13:54:46 heart valve disease: care instructions Not available 03/25/2024 13:54:47 mitral valve regurgitation: care instructions Not available 03/25/2024 13:54:46 11/10/2024 [id number] sleep apnea: car e instructions Not available 11/10/2024 11:07:02 Reason for Referral Sleep Medicine Referral for Obstructive sleep apnea syndrome needs update and new rx following eval Referring Physician: Cheo Hendrickson, Internal Medicine, Encounter Date: 11/10/2024 Results Created Date Observation Date Name Description Value Unit Range Abnormal Flag Note LastModifiedBy Organization Detail LastModifiedTime 04/10/2004/10/2024 US, echoc ardio gram, trans thora cic, compl ete, w/ color flow No observ ation record ed. [address], [address], 04/10/2024 20:52:21 Result Notes None recorded. Problems Name Problem SNOMED Code Status Onset Date Resolution Date Notes Provider Name and Address Organization Details Recorded Time Obstruct lazarus sleep apnea syndrome 06465902 Active 2017 Not Available [facility] 1 10:52:05 Prediabe virgen 987453697 Completed 201711/12/2017 Cheo Hendrickson, DO [address] [place] [address], [address], [facility] [place], [facility] 8 11:14:51 Hyperten sive disorder 09041342 Active 2017 Not Available [facility] 1 10:52:05 Migraine 29693363 Active 2017 Not Available [facility] 1 10:52:05 History of reductio n of breast 564306882 Active 2017 b/l Not Available [facility] 1 10:52:05 History of obesity 223179895 Active 2017 Not Available [facility] 1 10:52:05 Diabetes mellitus 78374827 Active 2017 Not Available [facility] 1 10:52:05 Hypercho lesterol emia 65283789 Active 2019 Not Available [facility] 1 10:52:05 COVID-19 407359982 Active 2020March 2021 [facility] 1 10:19:08 Concussi on injury of brain 550001387 Active 2021 Cheo Hendrickson, DO [address] [place] [address], [address], [facility] [place] 2 11:44:23 Tobacco dependen ce syndrome 41863851 Active 2021 Cheo Hendrickson DO [address] [place] [address], [address], [facility] [place] 2 11:44:23 Aortic valve regurgit ation 17228276 Active 2022 Cheo Hendrickson DO [address] [place] [address], [address], [facility] [place] 3 14:45:15 Mitral valve regurgit ation 51616224 Active 2022 Cheo Hendrickson, DO [address] [place] [address], [address], [facility] [place] 3 14:45:28 Liver enzymes level above referenc e range 675434968 Active 2022 Cheo Hendrickson, DO [address] [place], [address], [facility] [place] 3 14:46:58 Viral upper respirat ory tract infectio n 143253833 Active 2022 Cheo Hendrickson, DO [address] [place] [address], [address], [facility] [place] 3 12:33:05 Atypical pneumoni a 164310546 Active 2022 Cheo Hendrickson, DO [address] [place] [address], [address], [facility] [place] Internal [facility] 3 14:54:16 Type 2 diabetes mellitus 12395971 Active 2024 Cheo Hendrickson, DO [address] [place] [address], [address], [facility] [place] 5 11:02:30 Liver enzymes outside referenc e range 897653606 Active 2024 Cheo Hendrickson, DO [address] [place] [address], [address], [facility] [place] 5 11:27:25 Problem Notes None recorded. Procedures Surgical History Date Name Laterality Status Provider Name and Address Organization Details Recorded Time 7 Colonoscopy completed Chuyita Dumont [facility] 06/10/2018 16:31:33 Imaging Results [...] Updated DateTime 5 171.45 cm 25.2 kg/m2 17285.5 6 g 74 /min 100 % 100 % 148/80 mm[Hg] Claritza Robles [facility] 5 10:34:15 Date Recorded Body height Body mass index (BMI) Body weight Heart rate Oxygen saturation Oxygen saturation in Arterial blood by Pulse oximetry Systolic And Diastolic Provider Name and Address Organization Details Last Updated DateTime 5 171.45 cm 25.2 kg/m2 04066.9 9 g 66 /min 98 % 98 % 158/94 mm[Hg] Leandra [facility] Internal [facility] 5 10:26:04 Date Recorded Body height Body mass index (BMI) Body weight Heart rate Oxygen saturation Oxygen saturation in Arterial blood by Pulse oximetry Systolic And Diastolic Provider Name and Address Organization Details Last Updated DateTime 4 171.45 cm 26.1 kg/m2 57019.8 3 g 66 /min 99 % 99 % 166/90 mm[Hg] Leandra Hill [facility] 4 10:02:11 Date Recorded Body height Body mass index (BMI) Body weight Heart rate Oxygen saturation Oxygen saturation in Arterial blood by Pulse oximetry Systolic And Diastolic Provider Name and Address Organization Details Last Updated DateTime 4 171.45 cm 26.1 kg/m2 46912.1 1 g 77 /min 100 % 100 % 138/80 mm[Hg] Claritza Robles [facility] 4 13:41:12 Date Recorded Body height Body mass index (BMI) Body weight Heart rate Oxygen saturation Oxygen saturation in Arterial blood by Pulse oximetry Systolic And Diastolic Provider Name and Address Organization Details Last Updated DateTime 5 171.45 cm 25.2 kg/m2 12141.5 6 g 62 /min 98 % 98 % 172/90 mm[Hg] Claritza Robles [facility] 5 11:02:15 Social History Question Answer Notes LastModified by Organizat ion Details LastModified Time Tobacco Smoking Status Former Smoker [facility] 01/24/2023 09:08:35 What Was The Date Of Your Most Recent Tobacco Screening? 05/11/2025 [email or web address] Information not available 05/11/2025 How Much Tobacco Do You Smoke? No [email or web address] Information not available 01/24/2023 Sex: Unknown Functional Status Question Answer Note LastModified by Organization D etails LastModified Time Do you or have you ever used any other forms of tobacco or nicotine? No [email or web address] Information not available 01/24/2023 Mental Status None recorded. Family History Nothing Reported. Medical History Condition Response Coronary Artery Disease N Gout N Other N Kidney Stones N Blood Diseases N Blood Transfusion N Breast Cancer N COPD N Depression N Lung Disease [...] virus, quadrivalent, preservative 1 completed Yolanda Gencarelle null, [facility] 01/24/2023 08:53:02 COVID-19, mRNA, LNP-S, PF, 100 mcg/0.5mL dose or 50 mcg/0.25mL dose 1 completed Yolanda Gencarelle null, [facility] 01/24/2023 08:53:02 influenza, unspecified formulation 2 completed Yolanda Gencarelle null, [facility] 01/24/2023 08:53:02 influenza, unspecified formulation 3 completed Blayne Jacksonda null, [facility] 08/24/2023 16:11:48 Influenza, split virus, quadrivalent, preservative 9 completed Yolanda Gencarelle null, [facility] 01/24/2023 08:53:02 Influenza, split virus, quadrivalent, preservative 0 completed Yolanda Gencarelle null, [facility] 01/24/2023 08:53:02 pneumococcal polysaccharide PPV23 0 completed Yolanda Gencarelle null, [facility] 01/24/2023 08:53:02 zoster recombinant 0 completed Yolanda Gencarelle null, [facility] 01/24/2023 08:53:02 zoster recombinant 1 completed Yolanda Gencarelle null, [facility] 01/24/2023 08:53:02 Tdap 1 completed Betty Figueroa null, [facility] 07/13/2020 10:57:02 COVID-19, mRNA, LNP-S, PF, 100 mcg/0.5mL dose or 50 mcg/0.25mL dose 1 completed Yolanda Gencarelle null, [facility] 01/24/2023 08:53:02 Influenza, split virus, quadrivalent, preservative 8 completed Yolanda Gencarelle null, [facility] 01/24/2023 08:53:02 COVID-19, mRNA, LNP-S, PF, 100 mcg/0.5mL dose or 50 mcg/0.25mL dose 1 completed Yolanda gonzales [facility] Internal [facility] 01/24/2023 08:53:02 Past Encounters Encounter ID Performer Location Encounter Start Date Encounter Closed Date Diagnosis/Indication Diagnosis SNOMED-CT Code Diagnosis ICD10 Code Diagnosis IMO Codes Diagnosis Note [id number] Cheo Hendrickson [facility] [address] [facility] [place] [facility] [place] [address] 11/12/2017 10:38:30 11/12/2017 13:14:04 Diabetes mellitus 41723812 E11.9 doing great and has been exercising every day 6.8 on no meds has eye exam next week Hypertensive disorder 38 134562 I10 no meds bp excellent cont to exercise [id number] Cheo Hendrickson [facility] [address] [facility] [place] [facility] [place] [address] 02/27/2018 10:28:27 02/27/2018 11:35:54 Diabetes mellitus 29169751 E11.9 doing great and has been exercising every day 6.0 on no meds awesome Hypertensive disorder 38 215727 I10 no meds bp excellent cont to exercise [id number] Cheo Hendrickson [facility] Internal [facility] [address] [facility], [place] [facility] [place] [address] 06/10/2018 11:21:20 06/10/2018 12:22:00 Diabetes mellitus 07669462 E11.9 doing great and has been exercising every day 6.0 on no meds awesome had sx from lipitor so will try rosuvastat as last ditch attempt Hypertensive disorder 38 625392 I10 no meds bp excellent cont to exercise Screening for malignant neoplasm of colon 715363207 Z12.11 Screening for malignant neoplasm of breast 259649123 Z12.31 [id number] Cheo Hendrickson [facility] Internal [facility] [address] [facility] [address] 07/10/2018 15:01:34 07/10/2018 15:26:13 Cough 91789815 R05 Fever 923858484 R50.9 Diabetes mellitus 064023 09 E11.9 pt aware to complete A1C [id number] Cheo Hendrickson [facility] [address] [facility] [address] [address] 09/01/2019 11:52:07 09/01/2019 12:16:48 Hypertensive disorder 90040622 I10 no meds bp excellent cont to exercise Diabetes mellitus 029340 E11.9 did not keep a good diet and drinking etoh relates has not been good will start metformin 500 daily for now had sx from lipitor so will try rosuvastat in as last ditch attempt needs to find out which meter is covered Hypercholesterolemia 136 17548 E78.00 [id number] Cheo Hendrickson DO [facility] [address] [facility] [address] [address] 12/15/2019 10:19:14 12/15/2019 11:22:01 Hypertensive disorder 27869944 I10 no meds bp excellent cont to exercise Diabetes mellitus 796671 E11.9 did not keep a good diet and drinking etoh relates has not been good will start metformin 500 daily for now had sx from lipitor so will try rosuvastat in as last ditch attempt needs to find out which meter is covered Hypercholesterolemia 136 80485 E78.00 doing great with rosuvastat [id number] Cheo Hendrickson DO [facility] [address] [facility] [address] [address] 03/15/2020 10:43:24 03/15/2020 11:59:16 Hypertensive disorder 10499003 I10 no meds bp excellent cont to exercise Diabetes mellitus 612924 E11.9 did not keep a good diet and drinking etoh relates has not been good will start januvia daily for now but the problem with this is the cost 120$$$$$ needs to start checking sugars needs to find out which meter is covered Hypercholesterolemia 136 36281 E78.00 doing great with rosuvastat Liver enzy mes level above reference range 269176790 R74.8 will rechk in may and will have her cut down on partying etc [id number] Cheo Hendrickson [facility] [address] [facility] [address] [address] 06/16/2020 09:49:40 06/16/2020 11:09:40 Hypertensive disorder 77086975 I10 no meds bp excellent cont to exercise Diabetes mellitus 586455 E11.9 januvia is well and is working great well tolerated relates has been good with diet and glucose readings doing good with diet will rechk a1c 3 mo Obstructiv e sleep apnea syndrome 78167790 G47.33 stable right now [id number] Cheo Hendrickson [facility] [address] [facility] [address] [address] 09/13/2020 10:20:18 09/13/2020 11:03:58 Hypertensive disorder 20271042 I10 no meds bp excellent cont to exercise sw will need to rechk after her echo Diabetes mellitus 379033 E11.9 januvia is well and is working great well tolerated relates has been good with diet and glucose readings doing good with diet will rechk a1c 3 mo Hypercholesterolemia 136 19823 E78.00 doing great with rosuvastat Atypical chest pain 1025 24716 R07.89 [id number] Cheo Hendrickson [facility] [address] [facility] [address] [address] 11/23/2020 13:57:35 11/23/2020 15:37:25 Concussion injury of brain 186905851 S06.0X0S with loss of consciousn ess discussed with patient echo report would like to discuss with dr. hendrickson Syncope 632483310 R55 with LOC and head injury Aortic cha ve regurgitation 48310528 I35.1 worsened since last echo and new aortic root dilation Mitral cha ve regurgitation 47177073 I34.0 stable compared [id number] Cheo Hendrickson [facility] [address] [facility] [address] [address] 12/01/2020 12:13:22 12/01/2020 12:42:18 Hypertensive disorder 76158566 I10 no meds bp excellent cont to exercise sw will need to rechk after her echo Diabetes mellitus 833857 E11.9 nahiduvia is well and is working great well tolerated relates has been good with diet and glucose readings doing good with diet will rechk a1c 3 mo 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 will have her take it easy over the next couple weeks [id number] Cheo Hendrickson [facility] [address] [facility] [address] 12/31/2020 11:13:06 12/31/2020 12:14:00 Diabetes mellitus 18084341 E11.9 landon is well and is working great well tolerated a1c is 6.9relates has been good with diet and glucose readings doing good with diet will rechk a1c 3 mo Hypertensive disorder 38 019968 I10 no meds bp excellent cont to exercise sw will need to rechk after her echo Obstructiv e sleep apnea syndrome 97940587 G47.33 stable right now Benign par oxysmal positional vertigo 547188617 H81.13 will need zyrtec D for the serous otitis seen on exam both ears Acute folliculitis 81767 7007 L73.9 [id number] Cheo Hendrickson [facility] [address] [facility] [address] 05/30/2021 10:08:21 05/30/2021 12:25:33 Hypertensive disorder 54406022 I10 no meds bp excellent cont to exercise sw will need to rechk after her echo Diabetes mellitus 004957 09 E11.9 a1c is up to 8.7 she has now shown signs of worsening neuropathy with hindu of tingling in feet at nightalso microalb has sl increased although still normalwe will try the trulicity rx again and see if the insurance will cover nowi am very worried about her and conveyed thatwill rechk a1c 3 mo Liver enzy mes level above reference range 148727525 R74.8 we will hold the rosuvastat in and rechk in 1 month [id number] Cheo Hendrickson [facility] [address] [facility] [address] 08/29/2021 10:43:14 08/29/2021 15:08:43 Diabetes mellitus 50537313 E11.9 a1c is down to 6.6 from 8.7 doing great with trulicitye ating ok needs to increase activitywe will decrease the metformin to one tablet per day Hypertensive disorder 38 718599 I10 no meds bp excellent cont to exercise sw will need to rechk after her echo [id number] Cheo Hendrickson [facility] [address] [facility] [address] 11/30/2021 10:50:07 11/30/2021 15:41:58 Hypertensive disorder 85419980 I10 no meds bp excellent cont to exercise sw will need to rechk after her echo Diabetes mellitus 676712 09 E11.9 a1c is down to 6.6 from 8.7 doing great with trulicitye ating ok needs to increase activitywe will decrease the metformin to one tablet per day Concussion injury of brain 724816464 S06.0X0S quiet and negative signs etc Tobacco de pendence syndrome 20501507 F17.200 discussed and quit in past already [id number] Cheo Hendrickson [facility] [address] [facility] [address] 03/22/2022 10:19:54 03/22/2022 11:35:03 Hypertensive disorder 46355607 I10 no meds bp excellent cont to exercise sw will need to rechk after her echo Diabetes mellitus 580203 09 E11.9 a1c is down to 6.5 and was 6.6 from 8.7 doing great with trulicitye ating ok needs to increase activitywe will decrease the metformin to one tablet per day Hypercholesterolemia 136 50589 E78.00 doing great with rosuvastat [id number] Cheo Hendrickson [facility] [address] [facility] [address] [address] 08/28/2022 13:55:54 08/28/2022 15:07:32 Diabetes mellitus 38557006 a1c isup to 8.8 and prior was down to 6.5 and was 6.6 from 8.7will increase trulicity and go back to 2 metformin dailyeatin g poorly needs to increase activity Hypertensive disorder 38 210083 I10 no meds bp excellent cont to exercise sw will need to rechk after her echo Obstructiv e sleep apnea syndrome 38257518 G47.33 stable right now Concussion injury of brain 873349628 S06.0X0S quiet and negative signs etc Screening mammography 24 450658 Z12.31 Liver enzy mes level above reference range 118049535 R74.8 we will still hold the rosuvastat in due to elevated levels andamount of etoh [id number] Cheo Hendrickson, [facility] [address] [facility],[place] [address] 11/01/2022 08:23:04 11/01/2022 14:24:08 Diabetes mellitus 78828747 E11.9 a1c is now down to 7.6 and she is doing much better she is walking daily and eating better no partying and quit tobacco we will stick to this plan and rechk in jan Liver enzy mes level above reference range 094051271 R74.8 we will still hold the rosuvastat in due to elevated levels andamount of etoh but levels are getting better Tobacco de pendence syndrome 50552168 F17.200 discussed and quit and is actually doing well without the past several mo Viral uppe r respiratory tract infection 258377824 J06.9 covid neg she will cont to treat conserv and will have her call if ay sudden change 'whereupon we would prob treat for pneumoniti s with medrol and zpak [id number] Cheo Hendrickson, [facility] [address] [facility] [place] [address] 01/24/2023 08:52:01 01/24/2023 09:45:50 Diabetes mellitus 19024409 E11.9 a1c is now down to 6.2 was 7.6 and she is doing much better she is walking daily and eating better no partying and quit tobacco we will stick to this plan and rechk in novhas been getting some random nausea episodes that are quick and disappear this is c/w trulicity Hypercholesterolemia 136 01539 E78.00 off all statins due to lft will discuss the injectable s with dr payton once we see Mitral cha ve regurgitation 74189944 I34.0 follows with cardiology now Hypertensive disorder 38 514544 I10 no meds bp excellent cont to exercise sw will need to rechk after her echo Liver enzy mes level above reference range 404749022 R74.8 we will still hold the rosuvastat in due to elevated levels andamount of etoh but levels are getting better [id number] Cheo Hendrickson DO [facility] [address] [facility] [address], [place] [address] 05/08/2023 13:51:20 05/08/2023 15:11:51 Hypercholesterolemia 64085804 E78.00 off all statins due to lft will discuss the injectable s with dr payton once we see Diabetes mellitus 724041 09 E11.9 a1c is now up tp 6.6 was down to 6.2 was 7.6 and she is doing much better she is walking daily and eating better no partying and quit tobacco we will stick to this plan and rechk in novhas been getting some random nausea episodes that are quick and disappear this is c/w trulicity Hypertensive disorder 38 [id number] I10 no meds bp excellent cont to exercise sw will need to rechk after her echo Atypical pneumonia [id number] [id number] J18.9 [id number] Cheo Hendrickson DO [facility] [address] [facility] [address] [place] [address] 08/27/2023 10:41:08 08/27/2023 11:34:36 Hypercholesterolemia 18618368 E78.00 off all statins due to lft will discuss the injectable s with dr payton once we see Hypertensive disorder 38 101907 I10 bp is up relates was in a great hurry sw will need to rechk after her echo Liver enzy mes level above reference range 921838167 R74.8 we will still hold the rosuvastat in due to elevated levels andamount of etoh but levels are getting better Diabetes mellitus 343838 09 E11.9 a1c is still at 6.6 was down to 6.2 was 7.6 and she is doing much better she is walking daily and eating better no partying and quit tobacco we will stick to this plan and rechk in novhas been getting some random nausea episodes that are quick and disappear this is c/w trulicity [id number] Cheo Hendrickson DO [facility] [address] [facility] [address] [place] [facility] [place] [address] 12/17/2023 09:54:11 12/17/2023 11:28:46 Depression screening [id number] Z13.31 SCREENING NEGATIVE Hypertensive disorder 38 187024 I10 bp is up relates was in a great hurry is doing bettter since losing wgt Diabetes mellitus 686830 09 E11.9 a1c is still at 7.1 was 7.9 and she is doing much better she is walking daily and eating better no partying and quit tobacco we will stick to this plan and rechk in [facility] been getting some random nausea episodes that are quick and disappear this is c/w trulicity Hypercholesterolemia 136 77453 E78.00 off all statins due to lft will discuss the injectable s with dr payton once we see [id number] Cheo Hendrickson [facility] [address] [facility] [address] 03/25/2024 13:33:13 03/25/2024 14:39:45 Diabetes mellitus 11043831 E11.9 aa1c is 6.7 Hypertensive disorder 38 741236 I10 bp is up relates was in a great hurry is doing bettter since losing wgt Mitral cha ve regurgitation 70102464 I34.0 follows with cardiology now Tobacco de pendence syndrome 79302233 F17.200 discussed and quit and is actually doing well without the past several mo Aortic cha ve regurgitation 05378810 I35.1 [id number] Cheo Hendrickson [facility] [address] [facility] [address] 07/21/2024 10:25:27 07/21/2024 11:04:16 Diabetes mellitus 63817441 E11.9 a1c is 6.7 will cont to follow Hypercholesterolemia 136 74613 E78.00 off all statins due to lft will discuss the injectable s with dr payton once we see Hypertensive disorder 38 305939 I10 bp is up relates was in a great hurry is doing bettter since losing wgt Liver enzy mes level above reference range 411147323 R74.8 we will still hold the rosuvastat in due to elevated levels andamount of etoh but levels are getting better [id number] Cheo Hendrickson [facility] [address] [facility],[place] [address] [place] [facility] [place] [address] 11/10/2024 10:17:01 11/10/2024 11:13:39 Depression screening 810973509 Z13.31 SCREENING NEGATIVE Type 2 alexa betes mellitus 02097743 E11.9 51642514 a1c is 6.7 stable and doing ok Hypercholesterolemia 136 25368 E78.00 [id number] off all statins due to lft will discuss the injectable s with dr payton once we see Hypertensive disorder 38 949346 I10 22298320 bp is up relates was in a great hurry is doing bettter since losing wgt Liver enzy mes level above reference range 977055971 R74.8 562858 we will still hold the rosuvastat in due to elevated levels andamount of etoh but levels are getting better Obstructiv e sleep apnea syndrome 86893036 G47.33 stable right now [id number] Cheo Hendrickson DO [facility] Internal [facility] [address],[place] [address] 05/11/2025 10:56:49 05/11/2025 13:01:50 Depression screening 876144218 Z13.31 SCREENING NEGATIVE Hypertensive disorder 38 196468 I10 bp is up 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 92197739 a1c is 6.7 stable and doing ok Aortic cha ve regurgitation 73187052 I35.1 Liver enzy mes outside reference range 286370881 R74.8 065675 Health Concerns Section Related Observation LastModified by Organization Detai ls LastModified Time None Recorded Concern Status LastModified by Organization Details LastModified Time None Recorded Advance Directives Directive None Recorded Payers Insurance Date Sequence Insurance Name Policy Number Policy Garcia Covered Member ID Garcia Member ID Guarantor Name 05/05/2025 1 [employer] - [facility] [place] [id number] Katrin Cutler [id number] Katrin Cutler 05/08/2025 1 [facility] ([facility] [place] [id number] Katrin Cutler [id number] Katrin Cutler Notes Date Note Type Note Provider Name and Address Organization Details Recorded Time 4 text/htm l Care Management - DiabetesReported by PatientHPIFor self care, patient reportsseeing eye doctor yearly for dilated eye exam,checking feet regularly,normal range of home blood sugars (in the low 100s), andno side effects from medications. For associated symptoms, patient reportssymptoms are usually well controlled,no fatigue,no dizziness,no excessive sweating,no headaches,no confusion,no increased thirst,no increased appetite,no increased urination,no blurred vision,no numbness of feet, andno calluses on feet. Care Management - HypertensionReported by [facility] self care, patient reportsnot under emotional stress. For severity, patient reportssymptoms are improvinganddoes not interfere with daily activities. For associated symptoms, patient reportsno dizziness,no lightheadedness,no chest pain,no shortness of breath,no palpitations,no edema,no calf muscle cramps,no blurred vision,no confusion,no headaches, andno fatigue.ROS as noted in the HPI here for rechk and is doing ok overrall and relates that she has lost more wgtis stressed at home with partner departing but remains an active with kids and workhas lost a little weightstill occ parties but has cut back a great deal Cheo Hendrickson, DO [address] [place], [address], [facility] [place] 12/18/2023 00:02:28 4 text/htm l Care Management - [facility]Rep[facility], patient reportsnot under emotional stress. For severity, patient reportssymptoms are improvinganddoes not interfere with daily activities. For associated symptoms, patient reportsno dizziness,no lightheadedness,no chest pain,no shortness of breath,no palpitations,no edema,no calf muscle cramps,no blurred vision,no confusion,no headaches, andno fatigue. Care Management - DiabetesReported by [facility] self care, patient reportsseeing eye doctor yearly [...] as noted in the HPI here for rechk and is doing okno cp no sobstill has etohno palpitationshas lost a little wgtdue to see tata in dec Cheo Hendrickson, DO [address] [place], [address], [facility] [place] 03/25/2024 13:55:18 5 text/htm l ROS as noted in the HPI here for rechkrelates that she is doing ok but just lost her mom denies any other physical probreviewed labrev echo stable overall Cheo Hendrickson, DO [address] [place], [address], [facility] [place] 07/21/2024 10:57:43 5 text/htm l ROS as noted in the HPI here for rechk \some allergy sxstress is not too bad diabetes chk up is ok a1c is 6.7gets her eyes eval here for rechkrelates that she is doing ok but just lost her mom denies any other physical probreviewed labrev echo stable overall Cheo Hendrickson, DO [address] [place], [address], [facility] [place] 11/10/2024 11:08:52 5 text/htm l Care Management - HypertensionReported [...] and upper chest Cheo Hendrickson, DO [address] [place], [address], [facility] 05/11/2025 11:31:06 OBGyn Episode No OBEpisode recorded.
== END 2025-05-11 11:36 | disposition home or self-care (01) ==
LOC: HO.MANLDS 11:35
PROVIDERS: Visit Provider Internal Medicine
DX: I10 Essential (primary) hypertension (principal); E11.9 Type 2 diabetes mellitus without complications
CPT/HCPCS: 36415; 80053; 83036; 85025